=== PATIENT | male | born 1965 | race Caucasian/White ===

== ENCOUNTER 2016-10-07 13:06 | Inpatient (IN) | payer MEDICAID ==
[~2016-10-07] VITALS: Ht 172.7 cm; Wt 91.3 kg
[~2016-10-07 13:06] MED LIST: ASPI-496 PO; CARV6.252 PO; CLIN-60 PO; Carvedilol PO; ENAL20TA PO; HYDR-3240 PO; IBUP-1222 PO; METH4TAB6 PO; SIMV20TA3 PO
[2016-10-07] MEDS ORDERED: ASPIRIN 81 MG TABLET CHEW PO ONE ×2 (13:30→16:30)
[2016-10-07] MEDS ORDERED: SODIUM CHLORIDE FLUSH 10ML SYR IVF ONE (13:30)
[2016-10-07 13:56] LABS: BLOOD UREA NITROGEN 13 mg/dL (7-18)
[2016-10-07 14:00] LABS: IS PT STATUS REG ER OR PRE ER? YES
[2016-10-07] MEDS ORDERED: NITROGLYCERIN SINGLE TAB 0.4 MG SL ONE (16:29)
[2016-10-07] MEDS ORDERED: MORPHINE SULFATE 4 MG/ML, 1ML ONE (16:29)
[2016-10-07] MEDS ORDERED: ONDANSETRON 2MG/ML, 2ML ONE (16:30)
[2016-10-07] MEDS ORDERED: ASPIRIN 81 MG TABLET CHEW ONE (16:30)
[2016-10-07] MEDS ORDERED: ONDANSETRON 2MG/ML, 2ML IVPush ONE (16:30)
[2016-10-07] MEDS ORDERED: NITROGLYCERIN SINGLE TAB 0.4 MG SL PRN (16:30)
[2016-10-07] MEDS: MORPHINE SULFATE 4 MG/ML, 1ML IVPush PRN (16:34)
[2016-10-07] MEDS ORDERED: LABETALOL 5MG/ML 40ML VIAL IVPush PRN (17:30)
[2016-10-07] MEDS ORDERED: DOCUSATE 100 MG CAPSULE PO PRN (17:30)
[2016-10-07] MEDS ORDERED: morphine SULFATE 10 MG/ML, 1ML IVPush PRN (17:30)
[2016-10-07] MEDS ORDERED: NITROGLYCERIN 0.4 MG BOTTLE (25 TABS) SL PRN (17:30)
[2016-10-07] MEDS ORDERED: ACETAMINOPHEN 325 MG TABLET PO PRN (17:30)
[2016-10-07] MEDS ORDERED: ONDANSETRON 2MG/ML, 2ML IVPush PRN (17:30)
[2016-10-07] MEDS ORDERED: POLYETHYLENE GLYCOL 17 GM PACKET PO PRN (17:30)
[2016-10-07] MEDS ORDERED: BISACODYL 10 MG SUPP PR PRN (17:30)
[2016-10-07 18:35] LABS: IS PT STATUS REG ER OR PRE ER? NO
[2016-10-07 20:18] VITALS: BP 142/90
[2016-10-07] MEDS: SODIUM CHLORIDE FLUSH 3ML SYRINGE IVF SCH (20:25)
[2016-10-07] MEDS ORDERED: SIMVASTATIN 20 MG TABLET PO SCH (21:00)
[2016-10-07] MEDS: HYDROcodone/APAP 5/325 TABLET PO PRN (21:41)
[2016-10-07] MEDS: CARVEDILOL 6.25 MG TABLET PO SCH (21:41)
[2016-10-07] MEDS: ENOXAPARIN 30 MG/0.3 ML SQ SCH (21:42)
[2016-10-08 00:13] LABS: IS PT STATUS REG ER OR PRE ER? NO
[2016-10-08 02:00] VITALS: BP 115/75
[2016-10-08] MEDS ORDERED: ASPIRIN 325 MG TABLET EC PO SCH (06:00)
[2016-10-08 07:00] VITALS: BP 130/83
[2016-10-08] MEDS ORDERED: ENALAPRIL 20MG TABLET PO SCH (09:00)
[2016-10-08] MEDS: SODIUM CHLORIDE FLUSH 3ML SYRINGE IVF SCH (09:00)
[2016-10-08] MEDS: CARVEDILOL 6.25 MG TABLET PO SCH (09:11)
[2016-10-08] MEDS: ENOXAPARIN 30 MG/0.3 ML SQ SCH (09:12)
[2016-10-08] MEDS: HYDROcodone/APAP 5/325 TABLET PO PRN (09:12)
[2016-10-08] MEDS: MORPHINE SULFATE 4 MG/ML, 1ML IVPush PRN (11:50)
[2016-10-08 14:16] VITALS: BP 103/64
[2016-10-08] MEDS ORDERED: PNEUMOCOCCAL 23 VACCINE IM-VACC ONE (16:00)
== END 2016-10-08 16:25 | disposition home or self-care (01) | DRG 880 ==
LOC: ED 17:07 → EDIP 17:08 → ED 17:16 → 5SO 18:04 → DCLOUNGE 10-08 16:13
PROVIDERS: ADMIT Internal Medicine; ATTEND Internal Medicine
DX: F41.9 Anxiety disorder, unspecified (principal); E78.5 Hyperlipidemia, unspecified; G89.29 Other chronic pain; M54.9 Dorsalgia, unspecified; I11.9 Hypertensive heart disease without heart failure; R60.0 Localized edema; I25.10 Atherosclerotic heart disease of native coronary artery without angina pectoris; F15.10 Other stimulant abuse, uncomplicated; I25.2 Old myocardial infarction; Z82.49 Family history of ischemic heart disease and other diseases of the circulatory system; Z83.3 Family history of diabetes mellitus; Z87.891 Personal history of nicotine dependence; Z91.19 Patient's noncompliance with other medical treatment and regimen; Z95.5 Presence of coronary angioplasty implant and graft; Z90.49 Acquired absence of other specified parts of digestive tract; Z90.89 Acquired absence of other organs; Z79.82 Long term (current) use of aspirin; Z79.899 Other long term (current) drug therapy; Z23 Encounter for immunization
CPT/HCPCS: 36415; 71020; 80048; 80061; 82040; 83880; 84484; 85025; 85379; 90732; 93005; 93306; 93970; 96374; 96375; J1650; J2405; J2270

== ENCOUNTER 2016-10-27 16:38 | Emergency (ER) | payer SELFPAY ==
[~2016-10-27] VITALS: Ht 172.7 cm; Wt 96.4 kg
[2016-10-27] MEDS ORDERED: SODIUM CHLORIDE 0.9% 1,000ML IVBOLUS ONE (17:00)
[2016-10-27] MEDS ORDERED: SODIUM CHLORIDE FLUSH 10ML SYR IVF ONE (17:00)
[2016-10-27 17:40] LABS: ASPARTATE AMINO TRANSFERASE 19 U/L (15-37); BLOOD UREA NITROGEN 14 mg/dL (7-18)
[2016-10-27] MEDS ORDERED: ONDANSETRON 2MG/ML, 2ML IVPush ONE (20:00)
[2016-10-27] MEDS ORDERED: morphine SULFATE 10 MG/ML, 1ML IVPush ONE (20:00)
[2016-10-27] MEDS ORDERED: MORPHINE SULFATE 4 MG/ML, 1ML ONE (20:07)
[2016-10-27] MEDS ORDERED: ONDANSETRON 2MG/ML, 2ML ONE (20:07)
[2016-10-27] MEDS ORDERED: OMNIPAQUE 350 MG/ML, 100ML BOTTLE ONE (20:58)
[2016-10-27 22:03] VITALS: BP 145/85
== END 2016-10-27 22:05 | disposition home or self-care (01) ==
LOC: ED 21:00
DX: K40.90 Unilateral inguinal hernia, without obstruction or gangrene, not specified as recurrent (principal); E78.5 Hyperlipidemia, unspecified; I10 Essential (primary) hypertension; I25.2 Old myocardial infarction; Z95.5 Presence of coronary angioplasty implant and graft; I25.10 Atherosclerotic heart disease of native coronary artery without angina pectoris; M54.9 Dorsalgia, unspecified; G89.29 Other chronic pain; F15.10 Other stimulant abuse, uncomplicated; Z87.891 Personal history of nicotine dependence
CPT/HCPCS: 36415; 74177; 80053; 81001; 83690; 85025; 96361; 96374; 96375; 99285; J2270; J2405; J7030; Q9967

== ENCOUNTER 2016-11-08 21:09 | Emergency (ER) | payer MEDICAID ==
[2016-11-08 21:12] VITALS: BP 127/82
[2016-11-08] MEDS ORDERED: KETOROLAC 30 MG/1 ML IM ONE (21:30)
[2016-11-08] MEDS ORDERED: KETOROLAC 30 MG/1 ML ONE (21:33)
== END 2016-11-08 22:23 | disposition home or self-care (01) ==
LOC: ED 22:20
DX: J20.8 Acute bronchitis due to other specified organisms (principal); B34.9 Viral infection, unspecified; J00 Acute nasopharyngitis [common cold]; E78.5 Hyperlipidemia, unspecified; I10 Essential (primary) hypertension; I25.2 Old myocardial infarction; I25.10 Atherosclerotic heart disease of native coronary artery without angina pectoris
CPT/HCPCS: 71020; 93005; 96372; 99284; J1885

== ENCOUNTER 2016-11-17 14:34 | Emergency (ER) | payer MEDICAID ==
[2016-11-17] MEDS ORDERED: HYDROcodone/APAP 5/325 TABLET ONE ×2 (16:29→16:34)
[2016-11-17] MEDS ORDERED: HYDROcodone/APAP 5/325 TABLET PO ONE (16:30)
[2016-11-17 18:11] VITALS: BP 116/84
== END 2016-11-17 18:14 | disposition home or self-care (01) ==
LOC: ED 18:08
DX: K40.91 Unilateral inguinal hernia, without obstruction or gangrene, recurrent (principal); I10 Essential (primary) hypertension; E78.5 Hyperlipidemia, unspecified; I25.2 Old myocardial infarction; Z87.891 Personal history of nicotine dependence
CPT/HCPCS: 36415; 74176; 85025; 99285

== ENCOUNTER 2016-11-23 21:34 | Emergency (ER) | payer MEDICAID ==
[~2016-11-23] VITALS: Ht 172.7 cm; Wt 92.9 kg
[2016-11-23] MEDS ORDERED: ONDANSETRON ODT 4 MG PO ONE (22:30)
[2016-11-23] MEDS ORDERED: OXYcodone/APAP 5/325MG TABLET PO ONE (22:30)
[2016-11-23] MEDS ORDERED: ONDANSETRON ODT 4 MG ONE (22:39)
[2016-11-23] MEDS ORDERED: OXYcodone/APAP 5/325MG TABLET ONE (22:39)
[2016-11-23 23:01] LABS: ASPARTATE AMINO TRANSFERASE 15 U/L (15-37); BLOOD UREA NITROGEN 10 mg/dL (7-18)
[2016-11-23 23:31] VITALS: BP 125/83
== END 2016-11-23 23:33 | disposition home or self-care (01) ==
LOC: ED 23:15
DX: K40.91 Unilateral inguinal hernia, without obstruction or gangrene, recurrent (principal); L03.211 Cellulitis of face; E78.5 Hyperlipidemia, unspecified; G56.00 Carpal tunnel syndrome, unspecified upper limb; G89.29 Other chronic pain; M54.9 Dorsalgia, unspecified
CPT/HCPCS: 36415; 80053; 83690; 85025; 99284; Q0162

== ENCOUNTER 2016-11-28 14:29 | Emergency (ER) | payer MEDICAID ==
[~2016-11-28] VITALS: Ht 172.7 cm; Wt 90.1 kg
[2016-11-28 14:36] VITALS: BP 147/95
[2016-11-28] MEDS ORDERED: HYDROcodone/APAP 5/325 TABLET ONE (15:26)
[2016-11-28] MEDS ORDERED: KETOROLAC 30 MG/1 ML ONE (15:26)
[2016-11-28] MEDS ORDERED: KETOROLAC 30 MG/1 ML IM ONE (15:30)
[2016-11-28] MEDS ORDERED: HYDROcodone/APAP 5/325 TABLET PO ONE (15:30)
== END 2016-11-28 17:01 | disposition home or self-care (01) ==
LOC: ED 15:09
DX: S39.012A Strain of muscle, fascia and tendon of lower back, initial encounter (principal); E78.5 Hyperlipidemia, unspecified; M54.9 Dorsalgia, unspecified; G89.29 Other chronic pain; I10 Essential (primary) hypertension; M51.36 Other intervertebral disc degeneration, lumbar region; M51.26 Other intervertebral disc displacement, lumbar region; Z86.73 Personal history of transient ischemic attack (TIA), and cerebral infarction without residual deficits; Z90.49 Acquired absence of other specified parts of digestive tract; Z95.5 Presence of coronary angioplasty implant and graft; W18.2XXA Fall in (into) shower or empty bathtub, initial encounter; Y93.E1 Activity, personal bathing and showering; Y93.89 Activity, other specified; Y99.8 Other external cause status; Y92.89 Other specified places as the place of occurrence of the external cause
CPT/HCPCS: 72110; 72190; 96372; 99284; J1885; J7512

== ENCOUNTER 2017-05-02 16:19 | Emergency (ER) | payer MEDICAID ==
[~2017-05-02] VITALS: Ht 172.7 cm; Wt 85.0 kg
[~2017-05-02 16:19] MED LIST changes: -CLIN-60 PO; +CLIN150C14 PO
[2017-05-02 17:21] VITALS: BP 127/79
[2017-05-02] MEDS ORDERED: MORPHINE SULFATE 4 MG/ML, 1ML IVPush PRN (17:30)
[2017-05-02] MEDS ORDERED: ONDANSETRON 2MG/ML, 2ML IVPush ONE (17:30)
[2017-05-02] MEDS ORDERED: SODIUM CHLORIDE 0.9% 1,000ML IVBOLUS ONE (17:30)
[2017-05-02] MEDS ORDERED: SODIUM CHLORIDE FLUSH 10ML SYR IVF ONE (17:30)
[2017-05-02 17:32] LABS: HEMATOCRIT 40.9 % (39.2-51.8); HEMOGLOBIN 13.6 g/dL (13.7-18.0); WHITE BLOOD COUNT 7.7 x10^3/uL (3.4-10)
[2017-05-02 17:41] LABS: BLOOD UREA NITROGEN 16 mg/dL (7-18)
[2017-05-02] MEDS ORDERED: OMNIPAQUE 350 MG/ML, 100ML BOTTLE ONE (18:25)
== END 2017-05-02 19:59 | disposition home or self-care (01) ==
LOC: ED 19:10
DX: R10.32 Left lower quadrant pain (principal); I10 Essential (primary) hypertension; E78.5 Hyperlipidemia, unspecified; I25.2 Old myocardial infarction; Z86.73 Personal history of transient ischemic attack (TIA), and cerebral infarction without residual deficits
CPT/HCPCS: 36415; 74177; 80048; 81003; 82040; 85025; 96360; 99285; J7030; Q9967

== ENCOUNTER 2017-06-07 18:33 | Emergency (ER) | payer MEDICAID ==
[~2017-06-07] VITALS: Ht 172.7 cm; Wt 96.9 kg
[2017-06-07 18:34] VITALS: BP 161/89
[2017-06-07] MEDS ORDERED: KETOROLAC 30 MG/1 ML ONE (18:56)
[2017-06-07] MEDS ORDERED: KETOROLAC 30 MG/1 ML IM ONE (19:00)
[2017-06-07] MEDS ORDERED: ALBUTEROL/IPRATROPIUM 2.5MG/0.5MG, 3 ML NPPB ONE (19:00)
[2017-06-07 19:22] LABS: RAPID INFLUENZA A Negative (Negative); RAPID INFLUENZA B Negative (Negative)
[2017-06-07] MEDS ORDERED: ALBUTEROL/IPRATROPIUM 2.5MG/0.5MG, 3 ML ONE (20:16)
== END 2017-06-07 20:35 | disposition home or self-care (01) ==
LOC: ED 18:51
DX: J45.31 Mild persistent asthma with (acute) exacerbation (principal); J00 Acute nasopharyngitis [common cold]; I10 Essential (primary) hypertension; E78.5 Hyperlipidemia, unspecified; G89.29 Other chronic pain; M54.9 Dorsalgia, unspecified; F17.210 Nicotine dependence, cigarettes, uncomplicated
CPT/HCPCS: 71046; 87400; 94640; 96372; 99285; J1885; J7620

== ENCOUNTER 2017-07-12 21:15 | Observation (INO) | payer MEDICAID ==
[~2017-07-12] VITALS: Ht 172.7 cm; Wt 102.4 kg
[2017-07-12] MEDS ORDERED: ASPIRIN 81 MG TABLET CHEW ONE (21:56)
[2017-07-12] MEDS ORDERED: KETOROLAC 30 MG/1 ML ONE (21:56)
[2017-07-12] MEDS ORDERED: SODIUM CHLORIDE 0.9% 1,000ML IVBOLUS ONE (22:00)
[2017-07-12] MEDS ORDERED: SODIUM CHLORIDE FLUSH 10ML SYR IVF ONE (22:00)
[2017-07-12] MEDS ORDERED: KETOROLAC 30 MG/1 ML IVPush ONE (22:00)
[2017-07-12] MEDS ORDERED: METOCLOPRAMIDE 5 MG/ML, 2ML IVPush ONE (22:00)
[2017-07-12] MEDS ORDERED: ASPIRIN 81 MG TABLET CHEW PO ONE (22:00)
[2017-07-12 22:22] LABS: MEAN CORPUSCULAR HEMOGLOBIN 30.3 pg (27.5-34.5); MEAN CORPUSCULAR HGB CONC 34.1 g/dL (33.2-36.2); MEAN PLATELET VOLUME 7.4 fL (7.4-10.4); PLATELET COUNT 259 x10^3/uL (130-400); RED BLOOD COUNT 5.04 x10^6/uL (4.38-5.82); RED CELL DISTRIBUTION WIDTH 14.3 % (9.4-14.8)
[2017-07-12 22:30] LABS: ALBUMIN 3.6 g/dL (3.4-5.0); ANION GAP 7 mmol/L (5-15); CALCIUM 8.8 mg/dL (8.5-10.1); CHLORIDE 109 mmol/L (98-107); CREATININE 1.01 mg/dL (0.7-1.3)
[2017-07-12 22:31] LABS: INTERNATIONAL NORMALIZED RATIO 0.95 (0.93-1.1); PARTIAL THROMBOPLASTIN TIME 30 Seconds (25-31); PROTHROMBIN TIME 9.8 Seconds (9.6-11.5)
[2017-07-12 22:32] LABS: D-DIMER < 0.19 ug/mlFEU (0.00-0.52)
[2017-07-12 22:33] LABS: TROPONIN I < 0.015 ng/mL (0.000-0.045)
[2017-07-12 22:48] LABS: BASOPHILS # (AUTO) 0.05 x10^3/uL (0-0.1); BASOPHILS % (AUTO) 1 % (0-1); EOSINOPHILS # (AUTO) 0.24 x10^3/uL (0-0.4); EOSINOPHILS % (AUTO) 3 % (1-7); LYMPHOCYTES # (AUTO) 2.17 x10^3/uL (1-3.4); LYMPHOCYTES % (AUTO) 28 % (22-44); MD SCAN; MONOCYTES # (AUTO) 0.58 x10^3/uL (0.2-0.8); MONOCYTES % (AUTO) 7 % (2-9); NEUTROPHILS # (AUTO) 4.82 x10^3/uL (1.8-6.8); NEUTROPHILS % (AUTO) 61 % (42-75)
[2017-07-12] MEDS ORDERED: MAGNESIUM SULFATE PMX 2GM/50ML 50 ML IV ONE (23:00)
[2017-07-12] MEDS ORDERED: DEXAMETHASONE 4 MG/ML, 1ML IVPush ONE (23:00)
[2017-07-12] MEDS ORDERED: DEXAMETHASONE 4 MG/ML, 5ML ONE (23:06)
[2017-07-13] MEDS ORDERED: ONDANSETRON 2MG/ML, 2ML IVPush PRN (00:30)
[2017-07-13] MEDS ORDERED: GUAIFENESIN/DM 200-20MG, 10ML UDC PO PRN (00:30)
[2017-07-13] MEDS ORDERED: hydrALAzine 20 MG/ML, 1ML IVPush PRN (00:30)
[2017-07-13] MEDS ORDERED: POLYETHYLENE GLYCOL 17 GM PACKET PO PRN (00:30)
[2017-07-13 00:55] VITALS: BP 145/91
[2017-07-13] MEDS: ENOXAPARIN 40 MG/0.4 ML SQ SCH (01:23)
[2017-07-13] MEDS: SODIUM CHLORIDE 0.9% 1,000 ML IV SCH ×3 (01:25→23:00)
[2017-07-13] MEDS: NICOTINE 7 MG/24 HR PATCH.TD24 TD SCH (02:08)
[2017-07-13 04:32] LABS: TROPONIN I < 0.015 ng/mL (0.000-0.045)
[2017-07-13] MEDS ORDERED: MECLIZINE 12.5 MG TABLET PO PRN (07:00)
[2017-07-13 08:06] VITALS: BP 129/76
[2017-07-13] MEDS: ENALAPRIL 20MG TABLET PO SCH (08:35)
[2017-07-13] MEDS: ASPIRIN 81 MG TABLET EC PO SCH (08:35)
[2017-07-13] MEDS: CARVEDILOL 6.25 MG TABLET PO SCH ×2 (08:35→22:55)
[2017-07-13] MEDS: KETOROLAC 30 MG/1 ML IVPush PRN ×3 (08:36→22:55)
[2017-07-13] MEDS: BUTALB/APAP/CAFFEINE 50MG/325MG/40MG PO PRN ×3 (08:58→18:48)
[2017-07-13 10:31] LABS: TROPONIN I < 0.015 ng/mL (0.000-0.045)
[2017-07-13 13:28] VITALS: BP 115/74
[2017-07-13 20:15] VITALS: BP 149/85
[2017-07-13] MEDS: SIMVASTATIN 20 MG TABLET PO SCH (22:55)
[2017-07-14 00:54] VITALS: BP_SYST 135; BP_SYST 35; BP_DIAS 68
[2017-07-14] MEDS: ENOXAPARIN 40 MG/0.4 ML SQ SCH (01:39)
[2017-07-14] MEDS: BUTALB/APAP/CAFFEINE 50MG/325MG/40MG PO PRN ×5 (01:39→21:00)
[2017-07-14] MEDS: NICOTINE 7 MG/24 HR PATCH.TD24 TD SCH (01:40)
[2017-07-14] MEDS: KETOROLAC 30 MG/1 ML IVPush PRN (07:41)
[2017-07-14 08:52] VITALS: BP 126/81
[2017-07-14] MEDS ORDERED: SUMATRIPTAN 6MG/0.5ML SQ ONE (09:00)
[2017-07-14] MEDS: ASPIRIN 81 MG TABLET EC PO SCH (09:10)
[2017-07-14] MEDS: CARVEDILOL 6.25 MG TABLET PO SCH ×2 (09:10→20:57)
[2017-07-14] MEDS: SODIUM CHLORIDE 0.9% 1,000 ML IV SCH ×2 (09:10→21:08)
[2017-07-14] MEDS: ENALAPRIL 20MG TABLET PO SCH (09:10)
[2017-07-14] MEDS: FLUTICASONE NASAL SPRAY 16GM NAS SCH ×2 (10:31→20:57)
[2017-07-14] MEDS ORDERED: KETOROLAC 30 MG/1 ML IVPush SCH (12:00)
[2017-07-14 14:25] VITALS: BP 108/67
[2017-07-14] MEDS ORDERED: SUMATRIPTAN 50 MG TABLET PO PRN (17:00)
[2017-07-14 19:56] VITALS: BP 120/70
[2017-07-14] MEDS: SIMVASTATIN 20 MG TABLET PO SCH (20:57)
[2017-07-14] MEDS: ZOLPIDEM 5MG TABLET PO PRN (20:58)
[2017-07-15] VITALS (8 sets, daily range): BP systolic 99–131; BP diastolic 65–85
[2017-07-15] MEDS ORDERED: KETOROLAC 30 MG/1 ML IVPush PRN
[2017-07-15] MEDS: NICOTINE 7 MG/24 HR PATCH.TD24 TD SCH (00:37)
[2017-07-15] MEDS: ENOXAPARIN 40 MG/0.4 ML SQ SCH (00:37)
[2017-07-15] MEDS: SODIUM CHLORIDE 0.9% 1,000 ML IV SCH (05:33)
[2017-07-15] MEDS: BUTALB/APAP/CAFFEINE 50MG/325MG/40MG PO PRN ×4 (05:34→22:12)
[2017-07-15] MEDS: FLUTICASONE NASAL SPRAY 16GM NAS SCH ×2 (08:20→19:58)
[2017-07-15] MEDS: ASPIRIN 81 MG TABLET EC PO SCH (08:21)
[2017-07-15] MEDS: ENALAPRIL 20MG TABLET PO SCH (08:21)
[2017-07-15] MEDS: CARVEDILOL 6.25 MG TABLET PO SCH ×2 (08:21→19:57)
[2017-07-15] MEDS: ACETAMINOPHEN 325 MG TABLET PO PRN (08:24)
[2017-07-15 16:19] LABS: HCT (SEDRATE) 38.7 % (39.2-51.8)
[2017-07-15] MEDS: SIMVASTATIN 20 MG TABLET PO SCH (19:57)
[2017-07-15] MEDS ORDERED: INDOMETHACIN 25 MG CAPSULE PO SCH (21:00)
[2017-07-15] MEDS: ZOLPIDEM 5MG TABLET PO PRN (22:12)
[2017-07-15] MEDS ORDERED: OMNIPAQUE 350 MG/ML, 100ML BOTTLE ONE (22:43)
[2017-07-16 01:25] VITALS: BP 100/62
[2017-07-16] MEDS: ACETAMINOPHEN 325 MG TABLET PO PRN ×2 (01:59→13:45)
[2017-07-16] MEDS: NICOTINE 7 MG/24 HR PATCH.TD24 TD SCH (02:00)
[2017-07-16] MEDS: BUTALB/APAP/CAFFEINE 50MG/325MG/40MG PO PRN (06:09)
[2017-07-16 07:45] VITALS: BP 110/68
[2017-07-16 07:46] VITALS: BP 115/69
[2017-07-16 07:47] VITALS: BP 108/64
[2017-07-16] MEDS: ENALAPRIL 20MG TABLET PO SCH (08:28)
[2017-07-16] MEDS: FLUTICASONE NASAL SPRAY 16GM NAS SCH (08:28)
[2017-07-16] MEDS: CARVEDILOL 6.25 MG TABLET PO SCH (08:28)
[2017-07-16] MEDS: ASPIRIN 81 MG TABLET EC PO SCH (08:28)
[2017-07-16] MEDS ORDERED: INDOMETHACIN 25 MG CAPSULE PO SCH (09:00)
[2017-07-16] MEDS ORDERED: ONDANSETRON 4 MG TABLET ONE (09:26)
[2017-07-16] MEDS ORDERED: INDO25CA PO (10:06)
[2017-07-16 12:51] VITALS: BP 100/55
== END 2017-07-16 15:45 | disposition home or self-care (01) ==
LOC: ED 21:59 → EDIP 23:57 → INTOOBSV 07-13 00:15 → EDIP 07-13 00:15 → UNDOADMOB 07-13 00:15 → 5SO 07-13 00:54 → EDIP 07-13 00:54 → 4EST 07-15 19:28 → 5SO 07-15 19:28
PROVIDERS: ADMIT Hospitalist; ATTEND Hospitalist
DX: G44.009 Cluster headache syndrome, unspecified, not intractable (principal); E78.5 Hyperlipidemia, unspecified; R51 Headache; I11.9 Hypertensive heart disease without heart failure; I25.10 Atherosclerotic heart disease of native coronary artery without angina pectoris; I25.2 Old myocardial infarction; Z79.82 Long term (current) use of aspirin; J45.909 Unspecified asthma, uncomplicated; Z86.73 Personal history of transient ischemic attack (TIA), and cerebral infarction without residual deficits; F17.210 Nicotine dependence, cigarettes, uncomplicated; E66.9 Obesity, unspecified; Z95.5 Presence of coronary angioplasty implant and graft
CPT/HCPCS: 36415; 70450; 70496; 70498; 70546; 70551; 71045; 80048; 82040; 84443; 84484; 85025; 85379; 85610; 85651; 85730; 86141; 93005; 96361; 96365; 96366; 96372; 96375; 96376; 97161; 99285; G0378; J1100; J1650; J1885; J2405; J2765; J3030; J3475; J7030; Q9967

== ENCOUNTER 2017-09-21 19:07 | Emergency (ER) | payer MEDICAID ==
[~2017-09-21] VITALS: Ht 172.7 cm; Wt 107.5 kg
[~2017-09-21 19:07] MED LIST changes: +INDO25CA PO
[2017-09-21] MEDS ORDERED: METHOCARBAMOL 750 MG TABLET PO ONE (20:00)
[2017-09-21] MEDS ORDERED: KETOROLAC 30 MG/1 ML IM ONE (20:00)
[2017-09-21 20:05] LABS: BASOPHILS # (AUTO) 0.03 x10^3/uL (0-0.1); BASOPHILS % (AUTO) 0 % (0-1); EOSINOPHILS # (AUTO) 0.19 x10^3/uL (0-0.4); EOSINOPHILS % (AUTO) 2 % (1-7); LYMPHOCYTES # (AUTO) 1.61 x10^3/uL (1-3.4); LYMPHOCYTES % (AUTO) 16 % (22-44); MD NO; MEAN CORPUSCULAR HEMOGLOBIN 31.4 pg (27.5-34.5); MEAN CORPUSCULAR HGB CONC 34.1 g/dL (33.2-36.2); MEAN CORPUSCULAR VOLUME 92.1 fL (81-97); MEAN PLATELET VOLUME 7.6 fL (7.4-10.4); MONOCYTES # (AUTO) 0.71 x10^3/uL (0.2-0.8); MONOCYTES % (AUTO) 7 % (2-9); NEUTROPHILS # (AUTO) 7.43 x10^3/uL (1.8-6.8); NEUTROPHILS % (AUTO) 75 % (42-75); PLATELET COUNT 292 x10^3/uL (130-400); RED BLOOD COUNT 4.92 x10^6/uL (4.38-5.82); RED CELL DISTRIBUTION WIDTH 14.7 % (9.4-14.8)
[2017-09-21 20:16] LABS: ALBUMIN 3.5 g/dL (3.4-5.0); ANION GAP 7 mmol/L (5-15); CALCIUM 8.8 mg/dL (8.5-10.1); CHLORIDE 111 mmol/L (98-107); CREATININE 1.25 mg/dL (0.7-1.3)
[2017-09-21 20:20] LABS: TROPONIN I < 0.015 ng/mL (0.000-0.045)
[2017-09-21] MEDS ORDERED: METHOCARBAMOL 750 MG TABLET ONE (20:30)
[2017-09-21] MEDS ORDERED: KETOROLAC 30 MG/1 ML ONE (20:30)
[2017-09-21 22:24] VITALS: BP 112/86
== END 2017-09-21 22:26 | disposition home or self-care (01) ==
LOC: ED 22:16
DX: S29.012A Strain of muscle and tendon of back wall of thorax, initial encounter (principal); M54.2 Cervicalgia; R07.89 Other chest pain; I10 Essential (primary) hypertension; E78.5 Hyperlipidemia, unspecified; I25.2 Old myocardial infarction; J45.909 Unspecified asthma, uncomplicated; Z79.82 Long term (current) use of aspirin; Z87.891 Personal history of nicotine dependence; Z90.49 Acquired absence of other specified parts of digestive tract; X58.XXXA Exposure to other specified factors, initial encounter; Y93.89 Activity, other specified; Y92.89 Other specified places as the place of occurrence of the external cause; Y99.8 Other external cause status
CPT/HCPCS: 36415; 71046; 72050; 80048; 82040; 84484; 85025; 85379; 93005; 96372; 99285; J1885

== ENCOUNTER 2017-11-09 13:46 | Emergency (ER) | payer MEDICAID ==
[~2017-11-09] VITALS: Ht 172.7 cm; Wt 96.0 kg
[2017-11-09] MEDS ORDERED: ASPIRIN 81 MG TABLET CHEW PO ONE (14:30)
[2017-11-09] MEDS ORDERED: SODIUM CHLORIDE FLUSH 10ML SYR IVF ONE (14:30)
[2017-11-09 14:41] LABS: BASOPHILS # (AUTO) 0.04 x10^3/uL (0-0.1); BASOPHILS % (AUTO) 0 % (0-1); EOSINOPHILS # (AUTO) 0.11 x10^3/uL (0-0.4); EOSINOPHILS % (AUTO) 1 % (1-7); LYMPHOCYTES % (AUTO) 15 % (22-44); MD NO; MEAN CORPUSCULAR HGB CONC 33.3 g/dL (33.2-36.2); MEAN CORPUSCULAR VOLUME 93.1 fL (81-97); MONOCYTES # (AUTO) 0.58 x10^3/uL (0.2-0.8); MONOCYTES % (AUTO) 7 % (2-9); NEUTROPHILS # (AUTO) 6.72 x10^3/uL (1.8-6.8); NEUTROPHILS % (AUTO) 77 % (42-75); PLATELET COUNT 260 x10^3/uL (130-400); RED CELL DISTRIBUTION WIDTH 13.9 % (9.4-14.8)
[2017-11-09 14:45] LABS: INTERNATIONAL NORMALIZED RATIO 0.97 (0.93-1.1)
[2017-11-09] MEDS ORDERED: ASPIRIN 81 MG TABLET CHEW ONE (14:46)
[2017-11-09] MEDS ORDERED: METO25TA35 PO (14:51)
[2017-11-09] MEDS ORDERED: ATOR20TA PO (14:51)
[2017-11-09 14:52] LABS: ALANINE AMINOTRANSFERASE 34 U/L (12-78); ALBUMIN 3.3 g/dL (3.4-5.0); ANION GAP 6 mmol/L (5-15); CALCIUM 8.5 mg/dL (8.5-10.1); CHLORIDE 112 mmol/L (98-107); CREATININE 0.75 mg/dL (0.7-1.3)
[2017-11-09 14:56] LABS: ALKALINE PHOSPHATASE 82 U/L (45-117); BILIRUBIN,TOTAL 0.4 mg/dL (0.2-1.0); TOTAL PROTEIN 6.7 g/dL (6.4-8.2); TROPONIN I 0.036 ng/mL (0.000-0.045)
[2017-11-09] MEDS ORDERED: KETOROLAC 30 MG/1 ML IVPush ONE (15:00)
[2017-11-09] MEDS ORDERED: KETOROLAC 30 MG/1 ML ONE ×2 (15:08→15:35)
[2017-11-09 16:58] VITALS: BP 125/76
== END 2017-11-09 17:01 | disposition home or self-care (01) ==
LOC: ED 15:15
DX: S29.012A Strain of muscle and tendon of back wall of thorax, initial encounter (principal); R07.89 Other chest pain; I11.9 Hypertensive heart disease without heart failure; G89.29 Other chronic pain; I25.10 Atherosclerotic heart disease of native coronary artery without angina pectoris; J45.909 Unspecified asthma, uncomplicated; E78.5 Hyperlipidemia, unspecified; I25.2 Old myocardial infarction; X58.XXXA Exposure to other specified factors, initial encounter; Y93.89 Activity, other specified; Y92.89 Other specified places as the place of occurrence of the external cause; Y99.8 Other external cause status; Z86.73 Personal history of transient ischemic attack (TIA), and cerebral infarction without residual deficits; Z87.891 Personal history of nicotine dependence
CPT/HCPCS: 36415; 71045; 80053; 83880; 84484; 85025; 85610; 93005; 96374; 99285; J1885

== ENCOUNTER 2017-11-24 09:15 | Emergency (ER) | payer MEDICAID ==
[~2017-11-24] VITALS: Ht 172.7 cm; Wt 94.0 kg
[~2017-11-24 09:15] MED LIST changes: +ATOR20TA PO; +METO25TA35 PO
[2017-11-24 09:54] LABS: BASOPHILS # (AUTO) 0.07 x10^3/uL (0-0.1); BASOPHILS % (AUTO) 1 % (0-1); EOSINOPHILS # (AUTO) 0.17 x10^3/uL (0-0.4); EOSINOPHILS % (AUTO) 2 % (1-7); LYMPHOCYTES # (AUTO) 1.02 x10^3/uL (1-3.4); LYMPHOCYTES % (AUTO) 11 % (22-44); MD NO; MEAN CORPUSCULAR HEMOGLOBIN 31.1 pg (27.5-34.5); MEAN CORPUSCULAR HGB CONC 33.6 g/dL (33.2-36.2); MEAN CORPUSCULAR VOLUME 92.4 fL (81-97); MEAN PLATELET VOLUME 7.9 fL (7.4-10.4); MONOCYTES # (AUTO) 0.47 x10^3/uL (0.2-0.8); MONOCYTES % (AUTO) 5 % (2-9); NEUTROPHILS # (AUTO) 7.87 x10^3/uL (1.8-6.8); NEUTROPHILS % (AUTO) 82 % (42-75); PLATELET COUNT 266 x10^3/uL (130-400); RED BLOOD COUNT 5.01 x10^6/uL (4.38-5.82); RED CELL DISTRIBUTION WIDTH 13.7 % (9.4-14.8)
[2017-11-24 10:05] LABS: ALBUMIN 3.4 g/dL (3.4-5.0); ANION GAP 8 mmol/L (5-15); CALCIUM 8.7 mg/dL (8.5-10.1); CHLORIDE 108 mmol/L (98-107)
[2017-11-24 10:08] LABS: ALANINE AMINOTRANSFERASE 25 U/L (12-78); ALKALINE PHOSPHATASE 94 U/L (45-117); BILIRUBIN,TOTAL 0.6 mg/dL (0.2-1.0); CREATININE 0.72 mg/dL (0.7-1.3); TOTAL PROTEIN 7.2 g/dL (6.4-8.2)
[2017-11-24] MEDS ORDERED: SODIUM CHLORIDE 0.9% 1,000ML IVBOLUS ONE (10:30)
[2017-11-24] MEDS ORDERED: KETOROLAC 30 MG/1 ML IVPush ONE (10:30)
[2017-11-24] MEDS ORDERED: METOCLOPRAMIDE 5 MG/ML, 2ML IVPush ONE (10:30)
[2017-11-24] MEDS ORDERED: DIPHENHYDRAMINE 50 MG/ML, 1ML IVPush ONE (10:30)
[2017-11-24] MEDS ORDERED: DIPHENHYDRAMINE 50 MG/ML, 1ML ONE (10:34)
[2017-11-24] MEDS ORDERED: KETOROLAC 30 MG/1 ML ONE (10:34)
[2017-11-24] MEDS ORDERED: METOCLOPRAMIDE 5 MG/ML, 2ML ONE (10:34)
[2017-11-24] MEDS ORDERED: DEXAMETHASONE 4 MG/ML, 1ML IVPush ONE ×2 (12:30→13:00)
[2017-11-24] MEDS ORDERED: DEXAMETHASONE 4 MG/ML, 1ML ONE ×2 (12:46→12:47)
[2017-11-24 13:29] VITALS: BP 145/89
== END 2017-11-24 13:49 | disposition home or self-care (01) ==
LOC: ED 11:18
DX: G43.909 Migraine, unspecified, not intractable, without status migrainosus (principal); I10 Essential (primary) hypertension; J45.909 Unspecified asthma, uncomplicated; E78.5 Hyperlipidemia, unspecified; I25.10 Atherosclerotic heart disease of native coronary artery without angina pectoris; Z90.89 Acquired absence of other organs; Z86.73 Personal history of transient ischemic attack (TIA), and cerebral infarction without residual deficits
CPT/HCPCS: 36415; 70450; 80053; 85025; 96361; 96374; 96375; 99285; J1100; J1200; J1885; J2765; J7030

== ENCOUNTER 2017-12-20 02:19 | Emergency (ER) | payer MEDICAID ==
[~2017-12-20] VITALS: Ht 172.7 cm; Wt 95.0 kg
[~2017-12-20 02:19] MED LIST changes: +ASPI-650 PO; +CYCL-259 PO; -INDO25CA PO; +INDO25CA5 PO; +LISI-167 PO; +NICO-486 TP
[2017-12-20 02:21] VITALS: BP 135/84
[2017-12-20] MEDS ORDERED: IBUPROFEN 200 MG TABLET PO ONE (03:30)
== END 2017-12-20 05:31 | disposition home or self-care (01) ==
LOC: ED 03:20
DX: G89.11 Acute pain due to trauma (principal); M25.512 Pain in left shoulder; M25.552 Pain in left hip; M25.562 Pain in left knee; E78.5 Hyperlipidemia, unspecified; I25.2 Old myocardial infarction; I10 Essential (primary) hypertension; J45.909 Unspecified asthma, uncomplicated; F17.200 Nicotine dependence, unspecified, uncomplicated; Z86.73 Personal history of transient ischemic attack (TIA), and cerebral infarction without residual deficits; Z72.9 Problem related to lifestyle, unspecified; W19.XXXA Unspecified fall, initial encounter; Y93.89 Activity, other specified; Y99.8 Other external cause status; Y92.009 Unspecified place in unspecified non-institutional (private) residence as the place of occurrence of the external cause
CPT/HCPCS: 99284

== ENCOUNTER 2017-12-25 07:40 | Emergency (ER) | payer MEDICAID ==
[~2017-12-25] VITALS: Ht 172.7 cm; Wt 94.3 kg
[2017-12-25] MEDS ORDERED: KETOROLAC 30 MG/1 ML IM ONE (08:30)
[2017-12-25] MEDS ORDERED: KETOROLAC 30 MG/1 ML ONE (08:43)
[2017-12-25 09:01] VITALS: BP 138/87
== END 2017-12-25 09:42 | disposition home or self-care (01) ==
LOC: ED 07:57
DX: M25.572 Pain in left ankle and joints of left foot (principal); M25.571 Pain in right ankle and joints of right foot; M25.562 Pain in left knee; M25.561 Pain in right knee; I10 Essential (primary) hypertension; M54.9 Dorsalgia, unspecified; G89.29 Other chronic pain; I25.2 Old myocardial infarction; E78.5 Hyperlipidemia, unspecified; G43.909 Migraine, unspecified, not intractable, without status migrainosus; J45.909 Unspecified asthma, uncomplicated; Z86.73 Personal history of transient ischemic attack (TIA), and cerebral infarction without residual deficits
CPT/HCPCS: 73564; 96372; 99284; J1885

== ENCOUNTER 2018-02-01 09:44 | Emergency (ER) | payer MEDICAID ==
[~2018-02-01] VITALS: Ht 172.7 cm; Wt 92.7 kg
[2018-02-01] MEDS ORDERED: ACETAMINOPHEN 325 MG TABLET ONE (10:16)
[2018-02-01] MEDS ORDERED: ACETAMINOPHEN 325 MG TABLET PO ONE (10:30)
[2018-02-01 10:52] LABS: BASOPHILS # (AUTO) 0.05 x10^3/uL (0-0.1); BASOPHILS % (AUTO) 1 % (0-1); EOSINOPHILS # (AUTO) 0.24 x10^3/uL (0-0.4); EOSINOPHILS % (AUTO) 2 % (1-7); LYMPHOCYTES # (AUTO) 1.29 x10^3/uL (1-3.4); LYMPHOCYTES % (AUTO) 11 % (22-44); MD NO; MEAN CORPUSCULAR HEMOGLOBIN 31.1 pg (27.5-34.5); MEAN CORPUSCULAR HGB CONC 33.9 g/dL (33.2-36.2); MEAN CORPUSCULAR VOLUME 91.8 fL (81-97); MEAN PLATELET VOLUME 8.1 fL (7.4-10.4); MONOCYTES # (AUTO) 0.59 x10^3/uL (0.2-0.8); MONOCYTES % (AUTO) 5 % (2-9); NEUTROPHILS # (AUTO) 9.24 x10^3/uL (1.8-6.8); NEUTROPHILS % (AUTO) 81 % (42-75); PLATELET COUNT 253 x10^3/uL (130-400); RED BLOOD COUNT 4.76 x10^6/uL (4.38-5.82); RED CELL DISTRIBUTION WIDTH 14.6 % (9.4-14.8)
[2018-02-01 11:02] LABS: ALBUMIN 3.3 g/dL (3.4-5.0); ANION GAP 7 mmol/L (5-15); CALCIUM 9.1 mg/dL (8.5-10.1); CHLORIDE 109 mmol/L (98-107)
[2018-02-01 11:05] LABS: ALANINE AMINOTRANSFERASE 20 U/L (12-78); ALKALINE PHOSPHATASE 101 U/L (45-117); BILIRUBIN,TOTAL 0.2 mg/dL (0.2-1.0); CREATININE 0.65 mg/dL (0.7-1.3); TOTAL PROTEIN 6.9 g/dL (6.4-8.2)
[2018-02-01 11:24] LABS: MICROSCOPIC AUTO
[2018-02-01 11:25] LABS: CULTURE INDICATED? NO
[2018-02-01 11:42] VITALS: BP 116/75
== END 2018-02-01 11:43 | disposition home or self-care (01) ==
LOC: ED 10:21
DX: N30.00 Acute cystitis without hematuria (principal); I25.10 Atherosclerotic heart disease of native coronary artery without angina pectoris; I10 Essential (primary) hypertension; I25.2 Old myocardial infarction; Z86.73 Personal history of transient ischemic attack (TIA), and cerebral infarction without residual deficits; J45.909 Unspecified asthma, uncomplicated; Z90.89 Acquired absence of other organs; F17.200 Nicotine dependence, unspecified, uncomplicated; E78.5 Hyperlipidemia, unspecified
CPT/HCPCS: 36415; 80053; 81001; 85025; 99284

== ENCOUNTER 2018-03-02 19:25 | Emergency (ER) | payer MEDICAID ==
[~2018-03-02] VITALS: Ht 172.7 cm; Wt 97.7 kg
[2018-03-02] MEDS ORDERED: ASPIRIN 81 MG TABLET CHEW PO ONE (19:30)
[2018-03-02] MEDS ORDERED: ASPIRIN 81 MG TABLET CHEW ONE (20:07)
[2018-03-02 20:21] LABS: BASOPHILS # (AUTO) 0.16 x10^3/uL (0-0.1); BASOPHILS % (AUTO) 2 % (0-1); EOSINOPHILS # (AUTO) 0.29 x10^3/uL (0-0.4); EOSINOPHILS % (AUTO) 3 % (1-7); LYMPHOCYTES % (AUTO) 25 % (22-44); MD NO; MEAN CORPUSCULAR HEMOGLOBIN 30.3 pg (27.5-34.5); MEAN CORPUSCULAR HGB CONC 33.5 g/dL (33.2-36.2); MEAN CORPUSCULAR VOLUME 90.3 fL (81-97); MEAN PLATELET VOLUME 7.6 fL (7.4-10.4); MONOCYTES % (AUTO) 6 % (2-9); NEUTROPHILS # (AUTO) 5.96 x10^3/uL (1.8-6.8); NEUTROPHILS % (AUTO) 64 % (42-75); PLATELET COUNT 291 x10^3/uL (130-400); RED CELL DISTRIBUTION WIDTH 14.3 % (9.4-14.8)
[2018-03-02 20:32] LABS: ALBUMIN 3.3 g/dL (3.4-5.0); ANION GAP 8 mmol/L (5-15); CALCIUM 7.9 mg/dL (8.5-10.1); CHLORIDE 110 mmol/L (98-107)
[2018-03-02 20:37] LABS: ALANINE AMINOTRANSFERASE 39 U/L (12-78); ALKALINE PHOSPHATASE 93 U/L (45-117); BILIRUBIN,TOTAL 0.3 mg/dL (0.2-1.0); CREATININE 0.78 mg/dL (0.7-1.3); TROPONIN I < 0.015 ng/mL (0.000-0.045)
[2018-03-02 21:03] VITALS: BP 113/66
== END 2018-03-02 21:25 | disposition home or self-care (01) ==
LOC: ED 21:05
DX: R07.89 Other chest pain (principal); R06.02 Shortness of breath; R20.2 Paresthesia of skin; I25.2 Old myocardial infarction; I11.9 Hypertensive heart disease without heart failure; Z87.891 Personal history of nicotine dependence
CPT/HCPCS: 36415; 71045; 80053; 84484; 85025; 93005; 99285

== ENCOUNTER 2018-05-04 10:38 | Emergency (ER) | payer MEDICAID ==
[~2018-05-04] VITALS: Ht 172.7 cm; Wt 104.5 kg
[2018-05-04 11:00] VITALS: BP 136/79
[2018-05-04] MEDS ORDERED: HYDR25TA11 PO (11:29)
[2018-05-04 11:54] LABS: ALBUMIN 3.4 g/dL (3.4-5.0); ANION GAP 5 mmol/L (5-15); CALCIUM 8.6 mg/dL (8.5-10.1); CHLORIDE 109 mmol/L (98-107)
[2018-05-04 11:57] LABS: ALANINE AMINOTRANSFERASE 44 U/L (12-78); ALKALINE PHOSPHATASE 89 U/L (45-117); BILIRUBIN,TOTAL 0.5 mg/dL (0.2-1.0); CREATININE 0.77 mg/dL (0.7-1.3); TOTAL PROTEIN 7.1 g/dL (6.4-8.2)
[2018-05-04] MEDS ORDERED: SODIUM CHLORIDE FLUSH 10ML SYR IVF ONE (12:00)
[2018-05-04] MEDS ORDERED: OMNIPAQUE 350 MG/ML, 100ML BOTTLE ONE (12:57)
--- NOTE | 2018-05-04 13:15 | NUR ---
all results returned, chart placed for recheck.
--- NOTE | 2018-05-04 13:54 | NUR ---
PT EDUCATED ON DISCHARGE INSTRUCTIONS, VERBALLY ACKNOWLEDGED UNDERSTANDING. PT AMBULATES WITH STEADY GAIT. PT SITUATION IMPROVED AT THIS TIME.
[2018-05-18] MEDS ORDERED: ASPI-496 PO (16:48)
== END 2018-05-04 13:55 | disposition home or self-care (01) ==
LOC: ED 11:43
DX: L03.211 Cellulitis of face (principal); K04.7 Periapical abscess without sinus; I11.9 Hypertensive heart disease without heart failure; I25.10 Atherosclerotic heart disease of native coronary artery without angina pectoris; J45.909 Unspecified asthma, uncomplicated; E78.5 Hyperlipidemia, unspecified; I25.2 Old myocardial infarction; Z90.49 Acquired absence of other specified parts of digestive tract; Z86.73 Personal history of transient ischemic attack (TIA), and cerebral infarction without residual deficits; Z90.89 Acquired absence of other organs; Z87.891 Personal history of nicotine dependence; Z98.61 Coronary angioplasty status
CPT/HCPCS: 36415; 70487; 80053; 99284; Q9967

== ENCOUNTER 2018-06-02 18:12 | Inpatient (IN) | payer MEDICAID ==
[~2018-06-02] VITALS: Ht 172.7 cm; Wt 113.0 kg
[~2018-06-02 18:12] MED LIST changes: +FLUO20CA19 PO; +HYDR25TA11 PO
--- NOTE | 2018-06-02 18:29 | NUR ---
THIS PT ARRIVES TO ED VIA EMS FROM HOME TODAY AFTER HAIVNG SOME CHEST PAIN AND SEVERE PAIN. PT REPORTS IT STARTS AT EPIGASTRIC AREA AND THEN RADIATES TO LEFT SIDE WITH SCAPULAR LEFT SIDE PAIN. PT REPORTS THAT HE NORMALLY DOES NOT HAVE PAIN LIKE THIS BUT HAS HAD PAIN LIKE THIS WITH PREVIOUS [place]. PT CONNECTED TO MONITORS AND PIV BUS WASHER [facility]. PT HAD EKG AT THIS TIME. AWAITING FURTHER ORDERS. EKG COMPELTED ON ARRIVAL. REPORT TO MARLIN LIVINGSTON.
[2018-06-02] MEDS ORDERED: SODIUM CHLORIDE FLUSH 10ML SYR IVF ONE (19:00)
[2018-06-02 19:14] LABS: BASOPHILS # (AUTO) 0.01 x10^3/uL (0-0.1); BASOPHILS % (AUTO) 0 % (0-1); EOSINOPHILS % (AUTO) 0 % (1-7); LYMPHOCYTES # (AUTO) 0.47 x10^3/uL (1-3.4); LYMPHOCYTES % (AUTO) 5 % (22-44); MD NO; MEAN CORPUSCULAR HEMOGLOBIN 31.8 pg (27.5-34.5); MEAN CORPUSCULAR HGB CONC 34.2 g/dL (33.2-36.2); MEAN CORPUSCULAR VOLUME 92.9 fL (81-97); MEAN PLATELET VOLUME 7.6 fL (7.4-10.4); MONOCYTES % (AUTO) 1 % (2-9); NEUTROPHILS # (AUTO) 8.91 x10^3/uL (1.8-6.8); NEUTROPHILS % (AUTO) 94 % (42-75); PLATELET COUNT 271 x10^3/uL (130-400); RED BLOOD COUNT 4.52 x10^6/uL (4.38-5.82)
[2018-06-02 19:19] LABS: ALANINE AMINOTRANSFERASE 42 U/L (12-78); ALBUMIN 3.6 g/dL (3.4-5.0); ANION GAP 7 mmol/L (5-15); CALCIUM 8.7 mg/dL (8.5-10.1); CHLORIDE 106 mmol/L (98-107); CREATININE 0.97 mg/dL (0.7-1.3)
[2018-06-02 19:24] LABS: ALKALINE PHOSPHATASE 87 U/L (45-117); BILIRUBIN,TOTAL 0.3 mg/dL (0.2-1.0); TOTAL PROTEIN 7.4 g/dL (6.4-8.2); TROPONIN I < 0.015 ng/mL (0.000-0.045)
--- NOTE | 2018-06-02 19:51 | NUR ---
REPORT FROM NOEL LIVINGSTON. PT UP TO BR WITHOUT DIFFICULTY. PT NOW TO CT.
[2018-06-02] MEDS ORDERED: OMNIPAQUE 350 MG/ML, 100ML BOTTLE ONE (20:12)
--- NOTE | 2018-06-02 20:29 | NUR ---
CTA RESULTS BACK, PT FOR RECHECK.
--- NOTE | 2018-06-02 20:36 | NUR ---
DR SEPULVEDA IN TO SEE PT. VSS/UPDATED IN COMPUTER. POC DISCUSSED WITH PT, PT TO BE ADMITTED, MED REC COMPLETED.
[2018-06-02] MEDS ORDERED: LISI-167 PO (20:38)
[2018-06-02] MEDS ORDERED: MORPHINE SULFATE 4 MG/ML, 1ML ONE (21:03)
[2018-06-02] MEDS ORDERED: HYDR25TA11 PO (21:07)
[2018-06-02] MEDS ORDERED: IBUP-1222 PO (21:07)
[2018-06-02] MEDS ORDERED: TRAZ50TA66 PO (21:07)
[2018-06-02] MEDS ORDERED: ASPI-515 PO (21:07)
[2018-06-02] MEDS ORDERED: TRAM50TA2 PO (21:07)
[2018-06-02] MEDS ORDERED: ATOR20TA86 MT (21:07)
--- NOTE | 2018-06-02 21:14 | NUR ---
[facility] IN TO SEE PT. PT GIVEN MORPHINE 4MG IVP PER [facility] ORDER. AWAITING HEPARIN GTT/ORDERS AND ADMIT BED.
[2018-06-02] MEDS ORDERED: NICOTINE 14MG/24 HR PATCH.TD24 TD SCH (22:00)
[2018-06-02] MEDS ORDERED: ONDANSETRON ODT 4 MG PO PRN (22:00)
[2018-06-02] MEDS ORDERED: TRAZODONE 50MG TABLET PO PRN (22:00)
[2018-06-02] MEDS ORDERED: POLYETHYLENE GLYCOL 17 GM PACKET PO PRN (22:00)
[2018-06-02] MEDS ORDERED: BISACODYL 10 MG SUPP PR PRN (22:00)
--- NOTE | 2018-06-02 22:14 | NUR ---
REPORT TO DEB LIVINGSTON.
--- NOTE | 2018-06-02 22:26 | NUR ---
SBAR TELEPHONE HAND-OFF REPORT TO MIKI RIOS. PATIENT TO U/S AT THIS TIME.
[2018-06-02] MEDS ORDERED: HEPARIN 5,000 UNITS/ML, 1ML IV ONE (22:30)
[2018-06-02] MEDS ORDERED: MORPHINE SULFATE 4 MG/ML, 1ML IVPush ONE (22:30)
[2018-06-02 22:53] LABS: HEMOGLOBIN A1C 5.6 % (4.2-6.3)
[2018-06-02 22:55] VITALS: BP 142/78
[2018-06-02] MEDS: FLUOXETINE HCL 20 MG CAPSULE PO SCH (23:35)
[2018-06-02] MEDS: OXYcodone/APAP 5/325MG TABLET PO PRN (23:35)
[2018-06-02] MEDS: SODIUM CHLORIDE FLUSH 10ML SYR IVF SCH (23:38)
[2018-06-02] MEDS: HEPARIN 25,000 UNITS/500ML PMX 500 ML IV PRN (23:41)
[2018-06-03] MEDS: ACETAMINOPHEN 325 MG TABLET PO PRN ×3 (02:03→18:48)
[2018-06-03 02:07] VITALS: BP 131/75
[2018-06-03] MEDS: OXYcodone/APAP 5/325MG TABLET PO PRN ×5 (04:07→20:30)
[2018-06-03 06:28] LABS: BASOPHILS # (AUTO) 0.01 x10^3/uL (0-0.1); BASOPHILS % (AUTO) 0 % (0-1); EOSINOPHILS % (AUTO) 0 % (1-7); LYMPHOCYTES % (AUTO) 10 % (22-44); MD NO; MEAN CORPUSCULAR HEMOGLOBIN 31.6 pg (27.5-34.5); MEAN CORPUSCULAR HGB CONC 33.8 g/dL (33.2-36.2); MEAN CORPUSCULAR VOLUME 93.4 fL (81-97); MEAN PLATELET VOLUME 7.8 fL (7.4-10.4); MONOCYTES # (AUTO) 0.94 x10^3/uL (0.2-0.8); MONOCYTES % (AUTO) 7 % (2-9); NEUTROPHILS # (AUTO) 11.31 x10^3/uL (1.8-6.8); NEUTROPHILS % (AUTO) 83 % (42-75); PLATELET COUNT 263 x10^3/uL (130-400); RED BLOOD COUNT 4.25 x10^6/uL (4.38-5.82); RED CELL DISTRIBUTION WIDTH 14.4 % (9.4-14.8)
[2018-06-03 06:34] LABS: CHLORIDE 106 mmol/L (98-107)
[2018-06-03 06:43] LABS: ALANINE AMINOTRANSFERASE 36 U/L (12-78); ALBUMIN 3.3 g/dL (3.4-5.0); ALKALINE PHOSPHATASE 86 U/L (45-117); ANION GAP 7 mmol/L (5-15); BILIRUBIN,TOTAL 0.4 mg/dL (0.2-1.0); CALCIUM 8.6 mg/dL (8.5-10.1); CREATININE 1.14 mg/dL (0.7-1.3); TOTAL PROTEIN 6.9 g/dL (6.4-8.2)
[2018-06-03 08:00] VITALS: BP 140/80
[2018-06-03] MEDS: LISINOPRIL 10 MG TABLET PO SCH (08:16)
[2018-06-03] MEDS: FLUOXETINE HCL 20 MG CAPSULE PO SCH ×2 (08:16→20:29)
[2018-06-03] MEDS: HEPARIN 5,000 UNITS/ML, 1ML IV PRN ×3 (08:17→22:00)
[2018-06-03] MEDS: SODIUM CHLORIDE FLUSH 10ML SYR IVF SCH ×2 (08:26→20:29)
[2018-06-03] MEDS ORDERED: ATORVASTATIN 20 MG TABLET PO SCH ×2 (09:00→21:00)
[2018-06-03] MEDS: SENNA/DOCUSATE TABLET PO SCH ×2 (09:00→20:43)
[2018-06-03] MEDS ORDERED: NICOTINE 14MG/24 HR PATCH.TD24 TD SCH (13:00)
[2018-06-03 14:23] VITALS: BP 138/76
[2018-06-03 20:47] VITALS: BP 114/68
[2018-06-03] MEDS: HEPARIN 25,000 UNITS/500ML PMX 500 ML IV PRN (23:43)
[2018-06-04 00:23] VITALS: BP 124/72
[2018-06-04] MEDS: OXYcodone/APAP 7.5/325MG TABLET PO PRN ×3 (00:51→09:08)
[2018-06-04] MEDS: ACETAMINOPHEN 325 MG TABLET PO PRN ×3 (03:59→11:56)
[2018-06-04 06:36] LABS: BASOPHILS # (AUTO) 0.08 x10^3/uL (0-0.1); BASOPHILS % (AUTO) 1 % (0-1); EOSINOPHILS % (AUTO) 1 % (1-7); LYMPHOCYTES # (AUTO) 3.38 x10^3/uL (1-3.4); LYMPHOCYTES % (AUTO) 30 % (22-44); MD NO; MEAN CORPUSCULAR HEMOGLOBIN 31.7 pg (27.5-34.5); MEAN CORPUSCULAR HGB CONC 34.1 g/dL (33.2-36.2); MEAN CORPUSCULAR VOLUME 92.8 fL (81-97); MEAN PLATELET VOLUME 7.7 fL (7.4-10.4); MONOCYTES # (AUTO) 0.85 x10^3/uL (0.2-0.8); MONOCYTES % (AUTO) 8 % (2-9); NEUTROPHILS # (AUTO) 6.83 x10^3/uL (1.8-6.8); NEUTROPHILS % (AUTO) 61 % (42-75); PLATELET COUNT 246 x10^3/uL (130-400); RED BLOOD COUNT 4.16 x10^6/uL (4.38-5.82); RED CELL DISTRIBUTION WIDTH 14.4 % (9.4-14.8)
[2018-06-04 06:56] LABS: CHLORIDE 107 mmol/L (98-107)
[2018-06-04 07:21] LABS: ANION GAP 7 mmol/L (5-15); CALCIUM 8.5 mg/dL (8.5-10.1); CREATININE 0.79 mg/dL (0.7-1.3)
[2018-06-04 08:00] VITALS: BP 153/90
[2018-06-04] MEDS: FLUOXETINE HCL 20 MG CAPSULE PO SCH (08:54)
[2018-06-04] MEDS: LISINOPRIL 10 MG TABLET PO SCH (08:54)
[2018-06-04] MEDS: SODIUM CHLORIDE FLUSH 10ML SYR IVF SCH (09:00)
[2018-06-04] MEDS ORDERED: RIVA15TA PO (09:48)
[2018-06-04] MEDS ORDERED: RIVAROXABAN 15 MG TABLET PO SCH ×2 (11:30→17:00)
[2018-06-07] MEDS ORDERED: HYDR-3307 PO ×2 (19:35)
== END 2018-06-04 12:39 | disposition home or self-care (01) | DRG 176 ==
LOC: ED 20:46 → EDIP 21:56 → 4EST 22:49 → DCLOUNGE 06-04 12:30
PROVIDERS: ADMIT Internal Medicine; ATTEND Internal Medicine
DX: I26.99 Other pulmonary embolism without acute cor pulmonale (principal); I50.22 Chronic systolic (congestive) heart failure; D72.829 Elevated white blood cell count, unspecified; E11.65 Type 2 diabetes mellitus with hyperglycemia; E78.5 Hyperlipidemia, unspecified; F17.210 Nicotine dependence, cigarettes, uncomplicated; I11.0 Hypertensive heart disease with heart failure; I25.10 Atherosclerotic heart disease of native coronary artery without angina pectoris; I35.8 Other nonrheumatic aortic valve disorders; J45.909 Unspecified asthma, uncomplicated; Z82.49 Family history of ischemic heart disease and other diseases of the circulatory system; Z83.3 Family history of diabetes mellitus; Z86.73 Personal history of transient ischemic attack (TIA), and cerebral infarction without residual deficits; I25.2 Old myocardial infarction; Z95.5 Presence of coronary angioplasty implant and graft
CPT/HCPCS: 36415; 71046; 71275; 80048; 80053; 83036; 84484; 85025; 85520; 93005; 93306; 93970; 96374; G0378; J1644; Q9967

== ENCOUNTER 2018-06-19 19:29 | Emergency (ER) | payer MEDICAID ==
[~2018-06-19] VITALS: Ht 172.7 cm; Wt 108.6 kg
[~2018-06-19 19:29] MED LIST changes: +ASPI-515 PO; +ATOR20TA86 MT; +HYDR-3307 PO; +RIVA15TA PO; +TRAM50TA2 PO; +TRAZ50TA66 PO
[2018-06-19] MEDS ORDERED: MORPHINE SULFATE 4 MG/ML, 1ML ONE (20:54)
[2018-06-19] MEDS ORDERED: ONDANSETRON 2MG/ML, 2ML ONE (20:54)
[2018-06-19] MEDS ORDERED: ONDANSETRON 2MG/ML, 2ML IVPush ONE (21:00)
[2018-06-19] MEDS ORDERED: MORPHINE SULFATE 4 MG/ML, 1ML IVPush PRN (21:00)
[2018-06-19 21:29] LABS: BASOPHILS # (AUTO) 0.05 x10^3/uL (0-0.1); BASOPHILS % (AUTO) 1 % (0-1); EOSINOPHILS # (AUTO) 0.23 x10^3/uL (0-0.4); EOSINOPHILS % (AUTO) 3 % (1-7); LYMPHOCYTES # (AUTO) 2.22 x10^3/uL (1-3.4); LYMPHOCYTES % (AUTO) 24 % (22-44); MD NO; MEAN CORPUSCULAR HEMOGLOBIN 30.9 pg (27.5-34.5); MEAN CORPUSCULAR HGB CONC 33.3 g/dL (33.2-36.2); MEAN CORPUSCULAR VOLUME 92.8 fL (81-97); MEAN PLATELET VOLUME 7.5 fL (7.4-10.4); MONOCYTES # (AUTO) 0.85 x10^3/uL (0.2-0.8); MONOCYTES % (AUTO) 9 % (2-9); NEUTROPHILS # (AUTO) 5.82 x10^3/uL (1.8-6.8); NEUTROPHILS % (AUTO) 63 % (42-75); PLATELET COUNT 295 x10^3/uL (130-400); RED BLOOD COUNT 4.38 x10^6/uL (4.38-5.82); RED CELL DISTRIBUTION WIDTH 14.2 % (9.4-14.8)
[2018-06-19 21:37] LABS: MICROSCOPIC NOT IND
[2018-06-19 21:40] LABS: CULTURE INDICATED? NO
[2018-06-19 21:41] LABS: ALANINE AMINOTRANSFERASE 50 U/L (12-78); ALBUMIN 3.3 g/dL (3.4-5.0); ANION GAP 7 mmol/L (5-15); CALCIUM 8.1 mg/dL (8.5-10.1); CHLORIDE 110 mmol/L (98-107); CREATININE 0.69 mg/dL (0.7-1.3)
[2018-06-19 21:44] LABS: ALKALINE PHOSPHATASE 80 U/L (45-117); BILIRUBIN,TOTAL 0.2 mg/dL (0.2-1.0)
--- NOTE | 2018-06-19 21:57 | NUR ---
Pt reports R sided groin pain, hx of hernia, states he has had it repaired but multiple issues with pain. States this pain feels similar just worse
--- NOTE | 2018-06-19 22:13 | NUR ---
Pt reports decreased pain after med administration
--- NOTE | 2018-06-19 22:16 | NUR ---
Pt denies need for BM up to this point during ED visit
[2018-06-19 22:50] VITALS: BP 109/63
--- NOTE | 2018-06-19 22:50 | NUR ---
Discharge instructions discussed with patient, verbalizes understanding. Prescription provided to patient with instruction for use. Patient instructed not to drive home, verbalizes understanding. Patient ambulates independently with steady gait.
== END 2018-06-19 22:52 | disposition home or self-care (01) ==
LOC: ED 20:47
DX: R11.2 Nausea with vomiting, unspecified (principal); R19.7 Diarrhea, unspecified; R10.30 Lower abdominal pain, unspecified; I10 Essential (primary) hypertension; E11.9 Type 2 diabetes mellitus without complications; E78.5 Hyperlipidemia, unspecified; G43.909 Migraine, unspecified, not intractable, without status migrainosus; I25.2 Old myocardial infarction; I25.10 Atherosclerotic heart disease of native coronary artery without angina pectoris; Z86.73 Personal history of transient ischemic attack (TIA), and cerebral infarction without residual deficits; Z87.891 Personal history of nicotine dependence; Z72.9 Problem related to lifestyle, unspecified
CPT/HCPCS: 36415; 80053; 81003; 85025; 96374; 96375; 99283; J2405

== ENCOUNTER 2018-06-24 21:27 | Emergency (ER) | payer MEDICAID ==
[~2018-06-24] VITALS: Ht 172.7 cm; Wt 107.2 kg
[2018-06-24 21:50] VITALS: BP 119/79
--- NOTE | 2018-06-24 22:19 | NUR ---
pt in wn in [facility]. dr morgan at bedside with patient for history and assessment.
[2018-06-24 22:47] LABS: BASOPHILS # (AUTO) 0.04 x10^3/uL (0-0.1); BASOPHILS % (AUTO) 0 % (0-1); EOSINOPHILS # (AUTO) 0.25 x10^3/uL (0-0.4); EOSINOPHILS % (AUTO) 3 % (1-7); LYMPHOCYTES # (AUTO) 2.35 x10^3/uL (1-3.4); LYMPHOCYTES % (AUTO) 23 % (22-44); MD NO; MEAN CORPUSCULAR HEMOGLOBIN 31.5 pg (27.5-34.5); MEAN CORPUSCULAR HGB CONC 33.8 g/dL (33.2-36.2); MEAN CORPUSCULAR VOLUME 93.1 fL (81-97); MEAN PLATELET VOLUME 7.5 fL (7.4-10.4); MONOCYTES # (AUTO) 1.02 x10^3/uL (0.2-0.8); MONOCYTES % (AUTO) 10 % (2-9); NEUTROPHILS % (AUTO) 64 % (42-75); PLATELET COUNT 309 x10^3/uL (130-400); RED CELL DISTRIBUTION WIDTH 14.1 % (9.4-14.8)
[2018-06-24 22:59] LABS: INTERNATIONAL NORMALIZED RATIO 0.99 (0.93-1.1); PROTHROMBIN TIME 10.5 Seconds (9.6-11.5)
[2018-06-24 23:00] LABS: ALANINE AMINOTRANSFERASE 46 U/L (12-78); ALBUMIN 3.3 g/dL (3.4-5.0); ANION GAP 8 mmol/L (5-15); CALCIUM 8.7 mg/dL (8.5-10.1); CHLORIDE 107 mmol/L (98-107)
[2018-06-24 23:03] LABS: ALKALINE PHOSPHATASE 92 U/L (45-117); BILIRUBIN,TOTAL 0.4 mg/dL (0.2-1.0); CREATININE 1.18 mg/dL (0.7-1.3); TOTAL PROTEIN 7.3 g/dL (6.4-8.2)
[2018-06-24] MEDS ORDERED: MAALOX/HYOSCYAMINE/LIDOCAINE 45 ML BTL ONE (23:37)
--- NOTE | 2018-06-24 23:45 | NUR ---
pt medicated per mar.
[2018-06-25] MEDS ORDERED: MAALOX/HYOSCYAMINE/LIDOCAINE 45 ML BTL PO ONE
--- NOTE | 2018-06-25 | NUR ---
PT D/C WITH D/C SUMMARY. ALL QUESTIONS ANSWERED. PT DENIES ANY OTHER NEEDS PERTAINING TO THIS VISIT.
== END 2018-06-25 00:03 | disposition home or self-care (01) ==
LOC: ED 22:36
DX: K62.5 Hemorrhage of anus and rectum (principal); R19.7 Diarrhea, unspecified; R11.0 Nausea; I25.10 Atherosclerotic heart disease of native coronary artery without angina pectoris; G43.909 Migraine, unspecified, not intractable, without status migrainosus; I11.9 Hypertensive heart disease without heart failure; E11.9 Type 2 diabetes mellitus without complications; I25.2 Old myocardial infarction; E78.5 Hyperlipidemia, unspecified; Z86.73 Personal history of transient ischemic attack (TIA), and cerebral infarction without residual deficits; Z90.89 Acquired absence of other organs; Z90.49 Acquired absence of other specified parts of digestive tract; Z72.9 Problem related to lifestyle, unspecified
CPT/HCPCS: 36415; 80053; 83690; 85025; 85610; 86850; 86900; 99283

== ENCOUNTER 2018-06-30 23:10 | Emergency (ER) | payer MEDICAID ==
[~2018-06-30] VITALS: Ht 172.7 cm; Wt 109.1 kg
[2018-06-30 23:18] VITALS: BP 103/73
[2018-07-01] MEDS ORDERED: AMOXICILLIN 500 MG CAPSULE PO ONE (02:00)
[2018-07-01] MEDS ORDERED: HYDROcodone/APAP 5/325 TABLET ONE (02:29)
[2018-07-01] MEDS ORDERED: HYDROcodone/APAP 5/325 TABLET PO ONE (02:30)
== END 2018-07-01 02:52 | disposition home or self-care (01) ==
LOC: ED 07-01 00:52
DX: K08.89 Other specified disorders of teeth and supporting structures (principal); I25.2 Old myocardial infarction; I25.10 Atherosclerotic heart disease of native coronary artery without angina pectoris; I11.9 Hypertensive heart disease without heart failure; E11.9 Type 2 diabetes mellitus without complications; J45.909 Unspecified asthma, uncomplicated; E78.5 Hyperlipidemia, unspecified; Z86.73 Personal history of transient ischemic attack (TIA), and cerebral infarction without residual deficits; Z87.891 Personal history of nicotine dependence; Z90.49 Acquired absence of other specified parts of digestive tract
CPT/HCPCS: 99283

== ENCOUNTER 2018-09-19 17:39 | Emergency (ER) | payer MEDICAID ==
[~2018-09-19] VITALS: Ht 172.7 cm; Wt 117.2 kg
[2018-09-19 18:59] VITALS: BP 122/88
== END 2018-09-19 19:01 | disposition home or self-care (01) ==
LOC: ED 18:11
DX: M77.11 Lateral epicondylitis, right elbow (principal); E11.9 Type 2 diabetes mellitus without complications; E78.5 Hyperlipidemia, unspecified; I25.2 Old myocardial infarction; I25.10 Atherosclerotic heart disease of native coronary artery without angina pectoris; I50.9 Heart failure, unspecified; Z90.89 Acquired absence of other organs; Z72.89 Other problems related to lifestyle
CPT/HCPCS: 99283

== ENCOUNTER 2018-10-30 17:13 | Emergency (ER) | payer MEDICAID ==
[~2018-10-30] VITALS: Ht 172.7 cm; Wt 113.8 kg
[2018-10-30 17:14] VITALS: BP 127/81
[2018-10-30] MEDS ORDERED: HYDROcodone/APAP 5/325 TABLET PO ONE (17:30)
[2018-10-30] MEDS ORDERED: HYDROcodone/APAP 5/325 TABLET ONE (17:35)
--- NOTE | 2018-10-30 18:13 | NUR ---
Patient/Caregiver given discharge instructions and they have confirmed that they understand the instructions. Patient ambulatory with steady gait.
[2018-10-30] MEDS ORDERED: ASPIRIN 81 MG TABLET CHEW ONE (18:15)
== END 2018-10-30 18:13 | disposition home or self-care (01) ==
LOC: ED 18:10
DX: K04.7 Periapical abscess without sinus (principal); K02.9 Dental caries, unspecified; E11.9 Type 2 diabetes mellitus without complications; I25.10 Atherosclerotic heart disease of native coronary artery without angina pectoris; J45.909 Unspecified asthma, uncomplicated; E78.5 Hyperlipidemia, unspecified; I25.2 Old myocardial infarction; I10 Essential (primary) hypertension; Z90.89 Acquired absence of other organs; Z90.49 Acquired absence of other specified parts of digestive tract; Z98.61 Coronary angioplasty status; Z86.73 Personal history of transient ischemic attack (TIA), and cerebral infarction without residual deficits
CPT/HCPCS: 99283

== ENCOUNTER 2018-10-31 18:20 | Emergency (ER) | payer MEDICAID ==
[~2018-10-31] VITALS: Ht 172.7 cm; Wt 114.0 kg
[2018-10-31 18:27] VITALS: BP 163/91
[2018-10-31] MEDS ORDERED: HYDROcodone/APAP 5/325 TABLET ONE (19:23)
[2018-10-31] MEDS ORDERED: HYDROcodone/APAP 5/325 TABLET PO ONE (19:30)
== END 2018-10-31 19:34 | disposition home or self-care (01) ==
LOC: ED 19:24
DX: K04.7 Periapical abscess without sinus (principal); I10 Essential (primary) hypertension; E11.9 Type 2 diabetes mellitus without complications; G43.909 Migraine, unspecified, not intractable, without status migrainosus; I25.2 Old myocardial infarction; E78.5 Hyperlipidemia, unspecified; Z72.89 Other problems related to lifestyle; Z86.73 Personal history of transient ischemic attack (TIA), and cerebral infarction without residual deficits
CPT/HCPCS: 99281; 99282

== ENCOUNTER 2018-11-02 19:18 | Emergency (ER) | payer MEDICAID ==
[~2018-11-02] VITALS: Ht 172.7 cm; Wt 113.5 kg
[2018-11-02 19:19] VITALS: BP 136/81
[2018-11-02] MEDS ORDERED: HYDROcodone/APAP 5/325 TABLET ONE (19:50)
[2018-11-02] MEDS ORDERED: CLINDAMYCIN 150 MG/ML, 6ML IM ONE (20:00)
[2018-11-02] MEDS ORDERED: HYDROcodone/APAP 5/325 TABLET PO ONE (20:00)
[2018-11-02] MEDS ORDERED: CLINDAMYCIN 150 MG/ML, 6ML ONE (20:12)
== END 2018-11-02 20:48 | disposition home or self-care (01) ==
LOC: ED 20:19
DX: K04.7 Periapical abscess without sinus (principal); K02.9 Dental caries, unspecified; E11.9 Type 2 diabetes mellitus without complications; I25.10 Atherosclerotic heart disease of native coronary artery without angina pectoris; G43.909 Migraine, unspecified, not intractable, without status migrainosus; J45.909 Unspecified asthma, uncomplicated; I10 Essential (primary) hypertension; Z86.711 Personal history of pulmonary embolism
CPT/HCPCS: 96372; 99283; S0077

== ENCOUNTER 2018-12-25 16:15 | Emergency (ER) | payer MEDICAID ==
[~2018-12-25] VITALS: Ht 172.7 cm; Wt 117.0 kg
[2018-12-25 18:58] VITALS: BP 137/83
== END 2018-12-25 19:59 | disposition home or self-care (01) ==
LOC: ED 16:45
DX: S39.012A Strain of muscle, fascia and tendon of lower back, initial encounter (principal); M48.061 Spinal stenosis, lumbar region without neurogenic claudication; I11.9 Hypertensive heart disease without heart failure; E11.9 Type 2 diabetes mellitus without complications; I25.10 Atherosclerotic heart disease of native coronary artery without angina pectoris; J45.909 Unspecified asthma, uncomplicated; I25.2 Old myocardial infarction; Z86.73 Personal history of transient ischemic attack (TIA), and cerebral infarction without residual deficits; Z90.49 Acquired absence of other specified parts of digestive tract; X58.XXXA Exposure to other specified factors, initial encounter; Y93.89 Activity, other specified; Y92.89 Other specified places as the place of occurrence of the external cause; Y99.8 Other external cause status
CPT/HCPCS: 72148; 96372; 99284; J1885

== ENCOUNTER 2019-11-18 17:49 | Observation (INO) | payer MEDICAID ==
[~2019-11-18] VITALS: Ht 172.7 cm; Wt 142.0 kg
[~2019-11-18 17:49] MED LIST changes: -ATOR20TA86 MT; +ATOR20TA86 PO; +HYDR-3246 PO; -HYDR-3307 PO; +HYDR-826 PO; -HYDR25TA11 PO; +INDO25CA22 PO; -INDO25CA5 PO; +SIMV20TA19 PO; -SIMV20TA3 PO
[2019-11-18] MEDS ORDERED: NITROGLYCERIN SINGLE TAB 0.4 MG SL ONE (18:37)
[2019-11-18] MEDS: NITROGLYCERIN SINGLE TAB 0.4 MG SL PRN ×3 (18:39→18:52)
--- NOTE | 2019-11-18 18:45 | NUR ---
PT BIB P/V FOR CP SINCE 1330 THAT WAS NOT REPRODUCIBLE AND DESCRIBED A SHARP, PRESSURE PAIN THAT RADIATES TO HS BACK. PT IN PROCESS OF GETTING NITROX3 AND REEVALUATE PAIN. PT ON MONITOR AND ON 2 LITERS OF OXYGEN. IV STARTED.
--- NOTE | 2019-11-18 18:46 | NUR ---
requested records from [facility].
[2019-11-18 18:47] LABS: BASOPHILS # (AUTO) 0.04 x10^3/uL (0-0.1); BASOPHILS % (AUTO) 0 % (0-1); EOSINOPHILS # (AUTO) 0.11 x10^3/uL (0-0.4); EOSINOPHILS % (AUTO) 1 % (1-7); LYMPHOCYTES # (AUTO) 1.87 x10^3/uL (1-3.4); LYMPHOCYTES % (AUTO) 15 % (22-44); MD NO; MEAN CORPUSCULAR HGB CONC 33.7 g/dL (33.2-36.2); MEAN PLATELET VOLUME 7.9 fL (7.4-10.4); MONOCYTES # (AUTO) 0.85 x10^3/uL (0.2-0.8); MONOCYTES % (AUTO) 7 % (2-9); NEUTROPHILS # (AUTO) 10.02 x10^3/uL (1.8-6.8); NEUTROPHILS % (AUTO) 78 % (42-75); PLATELET COUNT 297 x10^3/uL (130-400); RED BLOOD COUNT 5.11 x10^6/uL (4.38-5.82); RED CELL DISTRIBUTION WIDTH 13.9 % (9.4-14.8)
[2019-11-18] MEDS ORDERED: ONDANSETRON 2MG/ML, 2ML ONE (18:47)
[2019-11-18 19:00] LABS: ALANINE AMINOTRANSFERASE 42 U/L (12-78); ALBUMIN 3.3 g/dL (3.4-5.0); ANION GAP 7 mmol/L (5-15); CALCIUM 9.2 mg/dL (8.5-10.1); CHLORIDE 106 mmol/L (98-107); CREATININE 1.03 mg/dL (0.7-1.3)
[2019-11-18] MEDS ORDERED: MORPHINE SULFATE 4 MG/ML, 1ML ONE ×2 (19:00→19:54)
[2019-11-18] MEDS ORDERED: ONDANSETRON 2MG/ML, 2ML IVPush ONE (19:00)
[2019-11-18] MEDS ORDERED: ASPIRIN 81 MG TABLET CHEW ONE (19:00)
[2019-11-18 19:04] LABS: ALKALINE PHOSPHATASE 103 U/L (45-117); BILIRUBIN,TOTAL 0.3 mg/dL (0.2-1.0); TOTAL PROTEIN 7.9 g/dL (6.4-8.2); TROPONIN I < 0.015 ng/mL (0.000-0.045)
[2019-11-18] MEDS: MORPHINE SULFATE 4 MG/ML, 1ML IVPush PRN ×2 (19:06→19:57)
--- NOTE | 2019-11-18 19:12 | NUR ---
PT TOOK 81 MG ASA FORESTRY TECHNICIAN.
[2019-11-18] MEDS ORDERED: ASPIRIN 81 MG TABLET CHEW PO ONE (19:30)
--- NOTE | 2019-11-18 19:41 | NUR ---
PT REPORTS PAIN IS DOWN FROM 8/10 TO 6/10. WILL REMEDICATE WITH MORPHINE AT ABOUT 2000 PER MD ORDER.
[2019-11-18] MEDS ORDERED: VITAMIN B12 (20:01)
[2019-11-18] MEDS ORDERED: BUPR-173 PO (20:01)
[2019-11-18] MEDS ORDERED: DIVA250T4 PO (20:01)
[2019-11-18] MEDS ORDERED: LISI-170 PO (20:01)
[2019-11-18] MEDS ORDERED: VITAMIN B12 PO (20:01)
--- NOTE | 2019-11-18 20:10 | NUR ---
PT REMEDICATED FOR PAIN. WAITING FOR ADMIT BED. PT UPDATED ON POC.
--- NOTE | 2019-11-18 20:43 | NUR ---
REPORT CALLED TO RYANNE LIVINGSTON. PAIN 10 AFTER MORPHINE. ADMITTING MD AT BEDSIDE FOR ADMIT. WAITING FOR TRANSPORT.
[2019-11-18 21:00] VITALS: BP 149/103
[2019-11-18] MEDS ORDERED: BACLOFEN 10 MG TABLET PO PRN (21:30)
[2019-11-18] MEDS ORDERED: TEMAZEPAM 15 MG CAPSULE PO PRN (21:30)
[2019-11-18] MEDS ORDERED: MAALOX/HYOSCYAMINE/LIDOCAINE 45 ML BTL PO ONE (21:30)
[2019-11-18] MEDS ORDERED: DOCUSATE 100 MG CAPSULE PO PRN (21:30)
[2019-11-18] MEDS ORDERED: hydrALAzine 20 MG/ML, 1ML IVPush PRN (21:30)
[2019-11-18] MEDS ORDERED: ONDANSETRON 2MG/ML, 2ML IVPush PRN (21:30)
[2019-11-18] MEDS ORDERED: ACETAMINOPHEN 325 MG TABLET PO PRN (21:30)
[2019-11-18] MEDS ORDERED: ASA/APAP/ CAFFEINE TABLET PO PRN (21:30)
[2019-11-18] MEDS ORDERED: NITROGLYCERIN 0.4 MG BOTTLE (25 TABS) SL PRN (21:30)
[2019-11-18] MEDS ORDERED: GUAIFENESIN/DM 200-20MG, 10ML UDC PO PRN (21:30)
[2019-11-18] MEDS ORDERED: NITROGLYCERIN 0.4 MG/SPRAY SL PRN (21:30)
[2019-11-18] MEDS: ENOXAPARIN 40 MG/0.4 ML SQ SCH (21:54)
[2019-11-18] MEDS: HYDROcodone/APAP 5/325 TABLET PO PRN (22:01)
[2019-11-18] MEDS: INSULIN REGULAR 100 UNITS/ML, 3ML VIAL SQ-INSULIN SCH (22:55)
[2019-11-18 23:15] LABS: TROPONIN I < 0.015 ng/mL (0.000-0.045)
[2019-11-18] MEDS: morphine SULFATE 10 MG/ML, 1ML IVPush PRN (23:22)
[2019-11-19 00:33] VITALS: BP 132/87
[2019-11-19] MEDS ORDERED: FURO20TA3 PO (01:08)
[2019-11-19] MEDS ORDERED: QUET25TA70 PO (01:08)
[2019-11-19] MEDS ORDERED: POTA20TA14 PO (01:08)
[2019-11-19] MEDS ORDERED: METF500T17 PO (01:08)
[2019-11-19] MEDS: morphine SULFATE 10 MG/ML, 1ML IVPush PRN ×4 (01:09→20:20)
[2019-11-19] MEDS: HYDROcodone/APAP 5/325 TABLET PO PRN ×2 (03:29→11:31)
[2019-11-19 05:54] LABS: BASOPHILS # (AUTO) 0.07 x10^3/uL (0-0.1); BASOPHILS % (AUTO) 1 % (0-1); EOSINOPHILS # (AUTO) 0.07 x10^3/uL (0-0.4); EOSINOPHILS % (AUTO) 1 % (1-7); LYMPHOCYTES # (AUTO) 1.42 x10^3/uL (1-3.4); LYMPHOCYTES % (AUTO) 15 % (22-44); MD NO; MEAN CORPUSCULAR HGB CONC 33.4 g/dL (33.2-36.2); MEAN PLATELET VOLUME 7.9 fL (7.4-10.4); MONOCYTES # (AUTO) 0.72 x10^3/uL (0.2-0.8); MONOCYTES % (AUTO) 8 % (2-9); NEUTROPHILS # (AUTO) 7.31 x10^3/uL (1.8-6.8); NEUTROPHILS % (AUTO) 76 % (42-75); PLATELET COUNT 272 x10^3/uL (130-400); RED BLOOD COUNT 4.83 x10^6/uL (4.38-5.82)
[2019-11-19 06:02] LABS: ANION GAP 5 mmol/L (5-15); CALCIUM 8.9 mg/dL (8.5-10.1); CHLORIDE 106 mmol/L (98-107)
[2019-11-19 06:08] LABS: CREATININE 0.79 mg/dL (0.7-1.3); TROPONIN I < 0.015 ng/mL (0.000-0.045)
[2019-11-19 06:56] VITALS: BP 145/88
[2019-11-19] MEDS: INSULIN REGULAR 100 UNITS/ML, 3ML VIAL SQ-INSULIN SCH ×4 (07:00→20:58)
[2019-11-19] MEDS ORDERED: REGADENOSON 0.4 MG/5 ML SYRINGE ONE (08:23)
[2019-11-19] MEDS: ASPIRIN 81 MG TABLET EC PO SCH (08:29)
[2019-11-19] MEDS: LISINOPRIL 20 MG TABLET PO SCH ×2 (08:29→20:20)
[2019-11-19] MEDS: BUPROPION SR 100 MG TABLET PO SCH (08:29)
[2019-11-19] MEDS: FAMOTIDINE 20 MG TABLET PO SCH ×2 (08:29→20:20)
[2019-11-19] MEDS: DIVALPROEX 250 MG TABLET.DR PO SCH (08:29)
[2019-11-19] MEDS: ATORVASTATIN 20 MG TABLET PO SCH (08:29)
[2019-11-19 13:26] VITALS: BP 125/79
[2019-11-19 19:44] VITALS: BP 130/83
[2019-11-19] MEDS: ENOXAPARIN 40 MG/0.4 ML SQ SCH (20:20)
[2019-11-20] MEDS: morphine SULFATE 10 MG/ML, 1ML IVPush PRN ×3 (01:06→09:23)
[2019-11-20 01:32] VITALS: BP 136/75
[2019-11-20] MEDS: HYDROcodone/APAP 5/325 TABLET PO PRN ×2 (04:51→12:51)
[2019-11-20] MEDS: INSULIN REGULAR 100 UNITS/ML, 3ML VIAL SQ-INSULIN SCH ×2 (08:18→11:36)
[2019-11-20] MEDS: FAMOTIDINE 20 MG TABLET PO SCH (08:20)
[2019-11-20] MEDS: BUPROPION SR 100 MG TABLET PO SCH (08:20)
[2019-11-20] MEDS: ASPIRIN 81 MG TABLET EC PO SCH (08:20)
[2019-11-20] MEDS: DIVALPROEX 250 MG TABLET.DR PO SCH (08:21)
[2019-11-20] MEDS: LISINOPRIL 20 MG TABLET PO SCH (08:21)
[2019-11-20] MEDS: ATORVASTATIN 20 MG TABLET PO SCH (08:21)
[2019-11-20 09:02] VITALS: BP 122/81
[2019-11-20 12:57] VITALS: BP 103/69
== END 2019-11-20 15:41 | disposition home or self-care (01) ==
LOC: ED 20:16 → EDIP 20:24 → INTOOBSV 20:24 → 5SO 20:46 → DCLOUNGE 11-20 15:32
PROVIDERS: ADMIT Internal Medicine; ATTEND Internal Medicine
DX: I16.1 Hypertensive emergency (principal); R07.89 Other chest pain; I25.10 Atherosclerotic heart disease of native coronary artery without angina pectoris; I10 Essential (primary) hypertension; E11.9 Type 2 diabetes mellitus without complications; E78.5 Hyperlipidemia, unspecified; F41.9 Anxiety disorder, unspecified; M25.551 Pain in right hip; E66.01 Morbid (severe) obesity due to excess calories; I25.2 Old myocardial infarction; Z86.711 Personal history of pulmonary embolism; Z87.891 Personal history of nicotine dependence; Z79.899 Other long term (current) drug therapy; Z86.73 Personal history of transient ischemic attack (TIA), and cerebral infarction without residual deficits; Z95.5 Presence of coronary angioplasty implant and graft; E78.00 Pure hypercholesterolemia, unspecified; Z68.42 Body mass index [BMI] 45.0-49.9, adult; Z79.82 Long term (current) use of aspirin
CPT/HCPCS: 36415; 71045; 78452; 80048; 80053; 82962; 84443; 84484; 85025; 85379; 93005; 93017; 93306; 96372; 96374; 96375; 96376; 99285; A9502; G0378; J1650; J1815; J2270; J2405; J2785

== ENCOUNTER 2019-12-08 12:34 | Emergency (ER) | payer MEDICAID ==
[~2019-12-08] VITALS: Ht 172.7 cm; Wt 138.2 kg
[~2019-12-08 12:34] MED LIST changes: +BUPR-173 PO; +DIVA250T4 PO; +FURO20TA3 PO; +LISI-170 PO; +METF500T17 PO; +POTA20TA14 PO; +QUET25TA70 PO; +VITAMIN B12; +VITAMIN B12 PO
--- NOTE | 2019-12-08 13:12 | NUR ---
PT CAME IN CO OF CHEST PAIN THAT RADIATES TO THE LEFT SIDE. THE PAIN CAME ON SUDDENLY DURING PHYSICAL THERAPY. PT WAS RECENTLY HOSPITALIZED FOR A HYPERTENSIVE CRISIS BUT HAS BEEN CONTROLLING BP WITH MEDS. PT IS RESTING IN [facility]. EKG COMPLETE. CONNECTED TO MONITORING EQUIPMENT.
[2019-12-08] MEDS ORDERED: SODIUM CHLORIDE FLUSH 10ML SYR IVF ONE (13:30)
[2019-12-08 13:49] LABS: BASOPHILS # (AUTO) 0.08 x10^3/uL (0-0.1); BASOPHILS % (AUTO) 1 % (0-1); EOSINOPHILS # (AUTO) 0.21 x10^3/uL (0-0.4); EOSINOPHILS % (AUTO) 3 % (1-7); LYMPHOCYTES # (AUTO) 1.42 x10^3/uL (1-3.4); LYMPHOCYTES % (AUTO) 18 % (22-44); MD NO; MEAN CORPUSCULAR HEMOGLOBIN 29.9 pg (27.5-34.5); MEAN CORPUSCULAR HGB CONC 33.3 g/dL (33.2-36.2); MEAN CORPUSCULAR VOLUME 89.7 fL (81-97); MEAN PLATELET VOLUME 7.8 fL (7.4-10.4); MONOCYTES # (AUTO) 0.59 x10^3/uL (0.2-0.8); MONOCYTES % (AUTO) 8 % (2-9); NEUTROPHILS # (AUTO) 5.57 x10^3/uL (1.8-6.8); NEUTROPHILS % (AUTO) 71 % (42-75); PLATELET COUNT 267 x10^3/uL (130-400); RED BLOOD COUNT 4.83 x10^6/uL (4.38-5.82); RED CELL DISTRIBUTION WIDTH 14.6 % (9.4-14.8)
[2019-12-08 13:58] LABS: ALBUMIN 3.2 g/dL (3.4-5.0); ANION GAP 5 mmol/L (5-15); CALCIUM 9.2 mg/dL (8.5-10.1); CHLORIDE 111 mmol/L (98-107); CREATININE 0.85 mg/dL (0.7-1.3)
[2019-12-08] MEDS ORDERED: KETOROLAC 30 MG/1 ML ONE (13:59)
[2019-12-08] MEDS ORDERED: KETOROLAC 30 MG/1 ML IVPush ONE (14:00)
[2019-12-08 14:03] LABS: TROPONIN I < 0.015 ng/mL (0.000-0.045)
--- NOTE | 2019-12-08 14:17 | NUR ---
IV PLACED. PT MEDICATED WITH ORDERED MED FOR PAIN. PT CURRENTLY STATING THE CHEST PAIN IS INTERMITTANT. PT ON CARDIAC AND VITALS MONITORS. WILL CONTINUE TO MONITOR.
--- NOTE | 2019-12-08 15:07 | NUR ---
PT RESTING IN [facility]. VSS. NAD
[2019-12-08 15:41] VITALS: BP 145/79
== END 2019-12-08 15:43 | disposition home or self-care (01) ==
LOC: ED 13:51
DX: R07.89 Other chest pain (principal); R06.02 Shortness of breath; R11.0 Nausea; I10 Essential (primary) hypertension; E11.9 Type 2 diabetes mellitus without complications; G89.29 Other chronic pain; I25.10 Atherosclerotic heart disease of native coronary artery without angina pectoris; R94.31 Abnormal electrocardiogram [ECG] [EKG]; Z86.73 Personal history of transient ischemic attack (TIA), and cerebral infarction without residual deficits; Z87.891 Personal history of nicotine dependence
CPT/HCPCS: 36415; 71045; 80048; 82040; 84484; 85025; 85379; 93005; 96374; 99285; J1885

== ENCOUNTER 2020-01-03 17:24 | Emergency (ER) | payer MEDICAID ==
[~2020-01-03] VITALS: Ht 172.7 cm; Wt 136.1 kg
[2020-01-03 17:27] VITALS: BP 147/88
[2020-01-03] MEDS ORDERED: KETOROLAC 60 MG/2 ML ONE (17:58)
[2020-01-03] MEDS ORDERED: KETOROLAC 30 MG/1 ML IM ONE (18:00)
--- NOTE | 2020-01-03 19:04 | NUR ---
REPORT RECIEVED FROM OSHAUNESSY. NO S/S OF DISTRESS FROM PATIENT
== END 2020-01-03 19:26 | disposition home or self-care (01) ==
LOC: ED 18:23
DX: G89.29 Other chronic pain (principal); M13.151 Monoarthritis, not elsewhere classified, right hip; I10 Essential (primary) hypertension; E11.9 Type 2 diabetes mellitus without complications; E78.5 Hyperlipidemia, unspecified; I25.10 Atherosclerotic heart disease of native coronary artery without angina pectoris; I25.2 Old myocardial infarction; Z90.89 Acquired absence of other organs; Z86.73 Personal history of transient ischemic attack (TIA), and cerebral infarction without residual deficits; Z87.891 Personal history of nicotine dependence
CPT/HCPCS: 73502; 93005; 96372; 99283; J1885

== ENCOUNTER 2020-01-09 14:11 | Emergency (ER) | payer MEDICAID ==
[~2020-01-09] VITALS: Ht 172.7 cm; Wt 128.0 kg
[2020-01-09 14:19] VITALS: BP 170/86
[2020-01-09] MEDS ORDERED: PROCHLORPERAZINE 5 MG/ML, 2ML IVPush ONE (15:00)
[2020-01-09] MEDS ORDERED: SODIUM CHLORIDE FLUSH 10ML SYR IVF ONE (15:00)
[2020-01-09] MEDS ORDERED: DIPHENHYDRAMINE 50 MG/ML, 1ML IVPush ONE (15:00)
[2020-01-09 15:03] LABS: BASOPHILS % (AUTO) 1 % (0-1); EOSINOPHILS # (AUTO) 0.15 x10^3/uL (0-0.4); EOSINOPHILS % (AUTO) 2 % (1-7); LYMPHOCYTES # (AUTO) 1.52 x10^3/uL (1-3.4); LYMPHOCYTES % (AUTO) 21 % (22-44); MD NO; MEAN CORPUSCULAR HEMOGLOBIN 29.8 pg (27.5-34.5); MEAN CORPUSCULAR HGB CONC 33.3 g/dL (33.2-36.2); MEAN CORPUSCULAR VOLUME 89.7 fL (81-97); MEAN PLATELET VOLUME 7.4 fL (7.4-10.4); MONOCYTES # (AUTO) 0.55 x10^3/uL (0.2-0.8); MONOCYTES % (AUTO) 7 % (2-9); NEUTROPHILS # (AUTO) 5.08 x10^3/uL (1.8-6.8); NEUTROPHILS % (AUTO) 69 % (42-75); PLATELET COUNT 301 x10^3/uL (130-400); RED BLOOD COUNT 4.88 x10^6/uL (4.38-5.82); RED CELL DISTRIBUTION WIDTH 14.7 % (9.4-14.8)
[2020-01-09] MEDS ORDERED: DIPHENHYDRAMINE 50 MG/ML, 1ML ONE (15:12)
[2020-01-09] MEDS ORDERED: PROCHLORPERAZINE 5 MG/ML, 2ML ONE (15:12)
[2020-01-09 15:13] LABS: ANION GAP 6 mmol/L (5-15); CALCIUM 8.7 mg/dL (8.5-10.1); CHLORIDE 111 mmol/L (98-107); CREATININE 0.69 mg/dL (0.7-1.3)
--- NOTE | 2020-01-09 17:19 | NUR ---
PT TO IMAGING AT THIS TIME.
[2020-01-09] MEDS ORDERED: OMNIPAQUE 350 MG/ML, 100ML BOTTLE ONE (17:40)
== END 2020-01-09 18:18 | disposition home or self-care (01) ==
LOC: ED 14:32
DX: R51 Headache (principal); R42 Dizziness and giddiness; R94.31 Abnormal electrocardiogram [ECG] [EKG]; I10 Essential (primary) hypertension; E11.9 Type 2 diabetes mellitus without complications; I25.10 Atherosclerotic heart disease of native coronary artery without angina pectoris; I25.2 Old myocardial infarction
CPT/HCPCS: 36415; 70450; 70496; 80048; 82040; 85025; 93005; 96374; 96375; 99285; J0780; J1200; Q9967

== ENCOUNTER 2020-02-11 19:26 | Emergency (ER) | payer MEDICAID ==
[~2020-02-11] VITALS: Ht 172.7 cm; Wt 128.0 kg
[~2020-02-11 19:26] MED LIST changes: -ENAL20TA PO; +ENAL20TA9 PO
[2020-02-11] MEDS ORDERED: HYDROcodone/APAP 5/325 TABLET PO ONE (22:00)
[2020-02-11] MEDS ORDERED: HYDROcodone/APAP 5/325 TABLET ONE (22:05)
[2020-02-11 22:46] VITALS: BP 128/75
== END 2020-02-11 22:53 | disposition home or self-care (01) ==
LOC: ED 19:56
DX: G89.29 Other chronic pain (principal); M25.551 Pain in right hip; Z76.0 Encounter for issue of repeat prescription; I10 Essential (primary) hypertension; E78.5 Hyperlipidemia, unspecified; I25.2 Old myocardial infarction
CPT/HCPCS: 99283

== ENCOUNTER 2020-04-20 22:58 | Emergency (ER) | payer MEDICAID ==
[~2020-04-20] VITALS: Ht 172.7 cm; Wt 136.0 kg
[2020-04-21 00:35] LABS: BASOPHILS % (AUTO) 1 % (0-1); EOSINOPHILS % (AUTO) 2 % (1-7); LYMPHOCYTES % (AUTO) 18 % (22-44); MEAN CORPUSCULAR HEMOGLOBIN 29.7 pg (27.5-34.5); MEAN CORPUSCULAR HGB CONC 33.2 g/dL (33.2-36.2); MEAN PLATELET VOLUME 7.7 fL (7.4-10.4); MONOCYTES % (AUTO) 9 % (2-9); NEUTROPHILS % (AUTO) 71 % (42-75); PLATELET COUNT 292 x10^3/uL (130-400); RED BLOOD COUNT 4.31 x10^6/uL (4.38-5.82); RED CELL DISTRIBUTION WIDTH 14.3 % (9.4-14.8)
[2020-04-21 00:36] LABS: MD NO
[2020-04-21 00:45] LABS: ALANINE AMINOTRANSFERASE 38 U/L (12-78); ALBUMIN 3.2 g/dL (3.4-5.0); ANION GAP 7 mmol/L (5-15); CALCIUM 8.7 mg/dL (8.5-10.1); CHLORIDE 108 mmol/L (98-107); CREATININE 0.75 mg/dL (0.7-1.3)
[2020-04-21 00:50] LABS: ALKALINE PHOSPHATASE 132 U/L (45-117); BILIRUBIN,TOTAL 0.4 mg/dL (0.2-1.0); TOTAL PROTEIN 7.7 g/dL (6.4-8.2); TROPONIN I < 0.015 ng/mL (0.000-0.045)
[2020-04-21] MEDS ORDERED: MORPHINE SULFATE 4 MG/ML, 1ML IVPush PRN (01:00)
[2020-04-21] MEDS ORDERED: ONDANSETRON 2MG/ML, 2ML IVPush ONE (01:00)
[2020-04-21] MEDS ORDERED: ONDANSETRON 2MG/ML, 2ML ONE (01:20)
[2020-04-21] MEDS ORDERED: MORPHINE SULFATE 4 MG/ML, 1ML ONE (01:20)
[2020-04-21 01:29] VITALS: BP 127/76
--- NOTE | 2020-04-21 01:37 | NUR ---
LATE ENTRY SUMMARY NOTE: BIB [facility] FOR RIGHT HIP PAIN. PT STATES HE FELL OFF THE TOILET AT A REHAB FACILITY 2 WEEKS AFTER HIS SX. HIS SX WAS IN FEBRUARY. PT IS A POOR HISTORIAN AND THIS RN WAS UNABLE TO OBTAIN A CLEAR ANSWER TO WHAT CHANGED TONIGHT THAT MADE THE PT WANT TO COME TO THE ER. PT SITTING IN BED, CONNECTED TO ALL MONITORS, URINAL AND CALL LIGHT IN REACH. ALL NEEDS MET.
--- NOTE | 2020-04-21 02:06 | NUR ---
Patient given discharge instructions and they have confirmed that they understand the instructions. Patient ambulatory with walker.
== END 2020-04-21 02:09 | disposition home or self-care (01) ==
LOC: ED 04-21 00:35
DX: G89.29 Other chronic pain (principal); M25.551 Pain in right hip; R07.9 Chest pain, unspecified; I10 Essential (primary) hypertension; E11.9 Type 2 diabetes mellitus without complications; E78.5 Hyperlipidemia, unspecified; I25.2 Old myocardial infarction; I25.10 Atherosclerotic heart disease of native coronary artery without angina pectoris; J45.909 Unspecified asthma, uncomplicated; F17.200 Nicotine dependence, unspecified, uncomplicated; Z86.73 Personal history of transient ischemic attack (TIA), and cerebral infarction without residual deficits; Z86.711 Personal history of pulmonary embolism; Z90.49 Acquired absence of other specified parts of digestive tract; Z90.89 Acquired absence of other organs
CPT/HCPCS: 36415; 71045; 73502; 80053; 83880; 84484; 85025; 93005; 96374; 96375; 99285; J2270; J2405; 99284

== ENCOUNTER 2020-08-11 18:26 | Emergency (ER) | payer MEDICAID ==
[~2020-08-11] VITALS: Ht 172.7 cm; Wt 127.0 kg
[~2020-08-11 18:26] MED LIST changes: -ASPI-515 PO; -ASPI-650 PO; +ASPI-963 PO; +ASPI325T20 PO; -CLIN150C14 PO; +CLIN150C15 PO; -CYCL-259 PO; +CYCL10TA2 PO; +HYDR-1067 PO; -HYDR-3240 PO; -HYDR-3246 PO; +HYDR-3248 PO; +QUET25TA2 PO; -QUET25TA70 PO
[2020-08-11 18:31] VITALS: BP 130/74
--- NOTE | 2020-08-11 18:33 | NUR ---
PT BIB EMS FOR RIGHT HIP PAIN. PT HAD TOTAL HIP REPLACEMENT IN MAY AND FEELS IF HE IS BEHIND IN THE HEALING PROCESS. "I HAVENT DONE ANY PT. IM SICK OF BEING HURT. I CANT EVEN PUT MY OWN SOCKS ON. IM SICK OF ASKING FOR HELP. IM GETTING DEPRESSED OVER IT". DENIES SI/HI. PT RESTING IN [facility]. CONNECTED TO MONITORING EQUIPMENT.
== END 2020-08-11 19:33 | disposition home or self-care (01) ==
LOC: ED 19:15
DX: F41.1 Generalized anxiety disorder (principal); M25.551 Pain in right hip; I10 Essential (primary) hypertension; E11.9 Type 2 diabetes mellitus without complications; I25.2 Old myocardial infarction; I25.10 Atherosclerotic heart disease of native coronary artery without angina pectoris; M19.90 Unspecified osteoarthritis, unspecified site; J45.909 Unspecified asthma, uncomplicated; G43.909 Migraine, unspecified, not intractable, without status migrainosus; F17.200 Nicotine dependence, unspecified, uncomplicated; Z90.89 Acquired absence of other organs; Z86.73 Personal history of transient ischemic attack (TIA), and cerebral infarction without residual deficits
CPT/HCPCS: 99283

== ENCOUNTER 2020-08-19 21:44 | Emergency (ER) | payer MEDICAID ==
[~2020-08-19] VITALS: Ht 172.7 cm; Wt 125.0 kg
--- NOTE | 2020-08-19 21:50 | NUR ---
THIS IS A 54M BIB EMS FROM [facility], PT REPORTS SOB X2DAYS, HX OF ASTHMA AND REPORTS MOLD BEING IN HIS HOME. PT DENIES FEVER CHILLS AND ALL OTHER SYMPTOMS ASIDE FROM THE SOB. PT CONNECTED TO ALL MONITORING VSS.
--- NOTE | 2020-08-19 22:10 | NUR ---
Report received from MIKI Santiago. This RN to assume care.
[2020-08-19 23:05] LABS: BASOPHILS % (AUTO) 1 % (0-1); EOSINOPHILS % (AUTO) 2 % (1-7); LYMPHOCYTES % (AUTO) 20 % (22-44); MD NO; MEAN CORPUSCULAR HEMOGLOBIN 27.5 pg (27.5-34.5); MEAN PLATELET VOLUME 7.6 fL (7.4-10.4); MONOCYTES % (AUTO) 8 % (2-9); NEUTROPHILS % (AUTO) 69 % (42-75); PLATELET COUNT 297 x10^3/uL (130-400); RED BLOOD COUNT 3.84 x10^6/uL (4.38-5.82); RED CELL DISTRIBUTION WIDTH 15.4 % (9.4-14.8)
[2020-08-19 23:08] LABS: ALBUMIN 2.7 g/dL (3.4-5.0); ANION GAP 4 mmol/L (5-15); CALCIUM 8.3 mg/dL (8.5-10.1); CHLORIDE 115 mmol/L (98-107); CREATININE 0.73 mg/dL (0.7-1.3)
[2020-08-19 23:13] LABS: TROPONIN I < 0.015 ng/mL (0.000-0.045)
[2020-08-20 00:08] VITALS: BP 145/79
== END 2020-08-20 00:12 | disposition home or self-care (01) ==
LOC: ED 22:38
DX: R06.00 Dyspnea, unspecified (principal); I50.1 Left ventricular failure, unspecified; R07.9 Chest pain, unspecified; R94.31 Abnormal electrocardiogram [ECG] [EKG]; I11.9 Hypertensive heart disease without heart failure; E11.9 Type 2 diabetes mellitus without complications; I25.10 Atherosclerotic heart disease of native coronary artery without angina pectoris; I25.2 Old myocardial infarction; Z90.89 Acquired absence of other organs; Z86.73 Personal history of transient ischemic attack (TIA), and cerebral infarction without residual deficits; Z98.61 Coronary angioplasty status; F17.210 Nicotine dependence, cigarettes, uncomplicated
CPT/HCPCS: 36415; 71045; 80048; 82040; 83880; 84484; 85025; 93005; 99285; 99406

== ENCOUNTER 2020-09-20 14:27 | Emergency (ER) | payer MEDICAID ==
[~2020-09-20] VITALS: Ht 172.7 cm; Wt 130.2 kg
[~2020-09-20 14:27] MED LIST changes: -HYDR-1067 PO; +HYDR-2214 PO
--- NOTE | 2020-09-20 15:42 | NUR ---
INSPECTOR SUBASSEMBLY: PT TO ROOM FROM LOBBY, VIA W/C
--- NOTE | 2020-09-20 16:10 | NUR ---
Pt to radiology.
--- NOTE | 2020-09-20 16:13 | NUR ---
x-ray, us delay
[2020-09-20] MEDS ORDERED: MORPHINE SULFATE 4 MG/ML, 1ML ONE (16:15)
[2020-09-20] MEDS ORDERED: ONDANSETRON 2MG/ML, 2ML ONE (16:15)
--- NOTE | 2020-09-20 16:16 | NUR ---
Report for meal break given and care transferred.
--- NOTE | 2020-09-20 16:24 | NUR ---
BREAK RN: ULTRASOUND IN ROOM
[2020-09-20] MEDS ORDERED: ONDANSETRON 2MG/ML, 2ML IVPush ONE (16:30)
[2020-09-20] MEDS ORDERED: SODIUM CHLORIDE FLUSH 10ML SYR IVF ONE (16:30)
[2020-09-20] MEDS ORDERED: MORPHINE SULFATE 4 MG/ML, 1ML IVPush PRN (16:30)
--- NOTE | 2020-09-20 16:54 | NUR ---
Report received from meal break RN and care re-assumed. RN states she had everything ready for IV start and medical radiation therapist, but US tech was at bedside awaiting pt when he returned from radiology and would not allow for lights to be on to start line. RN handed closed topped vials of morphine and zofran for admin to pt to this RN. US tech noted still at bedside at this time.
[2020-09-20 17:36] LABS: BASOPHILS % (AUTO) 1 % (0-1); EOSINOPHILS % (AUTO) 3 % (1-7); LYMPHOCYTES % (AUTO) 16 % (22-44); MEAN CORPUSCULAR HEMOGLOBIN 26.4 pg (27.5-34.5); MEAN CORPUSCULAR HGB CONC 32.5 g/dL (33.2-36.2); MEAN PLATELET VOLUME 7.2 fL (7.4-10.4); MONOCYTES % (AUTO) 8 % (2-9); NEUTROPHILS % (AUTO) 72 % (42-75); PLATELET COUNT 337 x10^3/uL (130-400); RED BLOOD COUNT 4.14 x10^6/uL (4.38-5.82); RED CELL DISTRIBUTION WIDTH 15.7 % (9.4-14.8)
[2020-09-20 17:37] LABS: MD NO
--- NOTE | 2020-09-20 17:43 | NUR ---
Meds given with new IV started by MIKI Trent, and pt states almost instant relief of pain. VS reassessed and stage technician here for CT.
[2020-09-20 17:50] LABS: ALBUMIN 2.9 g/dL (3.4-5.0); ANION GAP 5 mmol/L (5-15); CALCIUM 8.7 mg/dL (8.5-10.1); CHLORIDE 110 mmol/L (98-107)
[2020-09-20 17:55] LABS: CREATININE 0.59 mg/dL (0.7-1.3)
[2020-09-20] MEDS ORDERED: FENTANYL PF 100 MCG/2ML ONE (18:20)
[2020-09-20] MEDS ORDERED: FENTANYL PF 100 MCG/2ML IVPush ONE (18:26)
--- NOTE | 2020-09-20 18:37 | NUR ---
Pt back from CT and pain increased from 5/10 to 7/10 on reassessment. MD notified and orders received. Pt medicated at this time with Fentanyl IVP as ordered and placed on 2L/min NC due to desaturation noted shortly after admin with good effect. Ice water brought to bedside after okay from MD received.
[2020-09-20 19:00] VITALS: BP 156/75
--- NOTE | 2020-09-20 19:00 | NUR ---
Pain decreased with moderate effect after second pain physical medicine teacher on reassessment. Pt resting quietly in darkened room with VS stable.
--- NOTE | 2020-09-20 19:12 | NUR ---
All results reviewed and chart marked for recheck by .
--- NOTE | 2020-09-20 19:23 | NUR ---
PA at bedside discussed plan to be d/c'd with pt recently. IV site d/c'd and pt getting dressed now in anticipation of d/c. Pt aware of his need to wait for d/c paperwork before leaving. Pt requesting a cab voucher back to [facility].
== END 2020-09-20 19:49 | disposition home or self-care (01) ==
LOC: ED 17:00
DX: M25.551 Pain in right hip (principal); R06.02 Shortness of breath; I25.2 Old myocardial infarction; M79.89 Other specified soft tissue disorders
CPT/HCPCS: 36415; 73502; 73700; 80048; 82040; 82550; 83880; 85025; 93005; 93971; 96374; 96375; 99285; J2270; J2405; J3010

== ENCOUNTER 2020-09-29 22:20 | Emergency (ER) | payer MEDICAID ==
[~2020-09-29] VITALS: Ht 172.7 cm; Wt 128.0 kg
--- NOTE | 2020-09-29 22:33 | NUR ---
PT BIB EMS FOR BILAT LOWER LEG SWELLING. RIGHT ONE MORE SO THAN LEFT. HX CHF. TAKES LASIX "DOUBLED THE DOSE RECENTLY" "BEEN GOING ON FOR A FEW WEEKS" +4 EDEMA BILATERALLY, VSS, NO SOB/WORK, POX 96%
[2020-09-30 00:19] LABS: BASOPHILS % (AUTO) 1 % (0-1); EOSINOPHILS % (AUTO) 2 % (1-7); LYMPHOCYTES % (AUTO) 24 % (22-44); MEAN CORPUSCULAR HEMOGLOBIN 26.3 pg (27.5-34.5); MEAN CORPUSCULAR HGB CONC 32.2 g/dL (33.2-36.2); MEAN PLATELET VOLUME 7.6 fL (7.4-10.4); MONOCYTES % (AUTO) 9 % (2-9); NEUTROPHILS % (AUTO) 64 % (42-75); PLATELET COUNT 344 x10^3/uL (130-400); RED BLOOD COUNT 4.63 x10^6/uL (4.38-5.82); RED CELL DISTRIBUTION WIDTH 15.9 % (9.4-14.8)
--- NOTE | 2020-09-30 00:21 | NUR ---
CXR AT BEDSIDE
[2020-09-30 00:22] LABS: MD NO
[2020-09-30 00:28] LABS: ALANINE AMINOTRANSFERASE 20 U/L (12-78); ALBUMIN 3.1 g/dL (3.4-5.0); ANION GAP 6 mmol/L (5-15); CALCIUM 8.6 mg/dL (8.5-10.1); CHLORIDE 107 mmol/L (98-107)
[2020-09-30 00:32] LABS: ALKALINE PHOSPHATASE 133 U/L (45-117); BILIRUBIN,TOTAL 0.3 mg/dL (0.2-1.0); TOTAL PROTEIN 7.4 g/dL (6.4-8.2); TROPONIN I < 0.015 ng/mL (0.000-0.045)
--- NOTE | 2020-09-30 00:53 | NUR ---
NO CHANGE IN EXAM, VSS ON COMMERCIAL LENDING VICE PRESIDENT ALL TESTING RESULTED-PLACED UP FOR RECHECK FOR ERP
[2020-09-30 01:32] VITALS: BP 146/71
== END 2020-09-30 01:35 | disposition home or self-care (01) ==
LOC: ED 22:50
DX: G89.29 Other chronic pain (principal); M79.661 Pain in right lower leg; M79.662 Pain in left lower leg; I49.3 Ventricular premature depolarization; I11.0 Hypertensive heart disease with heart failure; I50.9 Heart failure, unspecified; E11.9 Type 2 diabetes mellitus without complications; I25.10 Atherosclerotic heart disease of native coronary artery without angina pectoris; J45.909 Unspecified asthma, uncomplicated; E78.5 Hyperlipidemia, unspecified; G43.909 Migraine, unspecified, not intractable, without status migrainosus; M19.90 Unspecified osteoarthritis, unspecified site; Z86.73 Personal history of transient ischemic attack (TIA), and cerebral infarction without residual deficits; Z86.711 Personal history of pulmonary embolism; Z87.891 Personal history of nicotine dependence
CPT/HCPCS: 36415; 71045; 80053; 83880; 84484; 85025; 93005; 99285

== ENCOUNTER 2020-10-19 00:40 | Emergency (ER) | payer MEDICAID ==
[~2020-10-19] VITALS: Ht 167.6 cm; Wt 132.0 kg
--- NOTE | 2020-10-19 03:01 | NUR ---
PT PRESENTS WITH ABD PAIN AT THE [place], PT STATES "DEEPA ALWAYS HAD AN INNY AND ITS NOW BECOMING AN OUTY." PT IN GOWN, AND HOOKED TO ALL THE MONITORS, RESTING ON LEXI
[2020-10-19 03:53] LABS: ALANINE AMINOTRANSFERASE 22 U/L (12-78); ANION GAP 7 mmol/L (5-15); CALCIUM 8.6 mg/dL (8.5-10.1); CHLORIDE 111 mmol/L (98-107); CREATININE 1.09 mg/dL (0.7-1.3)
[2020-10-19 03:55] LABS: ALKALINE PHOSPHATASE 138 U/L (45-117); BILIRUBIN,TOTAL 0.3 mg/dL (0.2-1.0); TOTAL PROTEIN 7.6 g/dL (6.4-8.2)
--- NOTE | 2020-10-19 03:59 | NUR ---
20 G IV STARTED TO RIGHT FA, PT REQUESTING PAIN MEDICATION AT THIS TIME, PT RESTING ON RNEY
[2020-10-19] MEDS ORDERED: MORPHINE SULFATE 4 MG/ML, 1ML ONE ×2 (04:14→05:30)
[2020-10-19] MEDS ORDERED: ONDANSETRON 2MG/ML, 2ML ONE (04:14)
[2020-10-19] MEDS: MORPHINE SULFATE 4 MG/ML, 1ML IVPush PRN ×2 (04:16→05:31)
--- NOTE | 2020-10-19 04:28 | NUR ---
PT MEDICATED, PT WENT TO CT
[2020-10-19] MEDS ORDERED: ONDANSETRON 2MG/ML, 2ML IVPush ONE (04:30)
--- NOTE | 2020-10-19 04:40 | NUR ---
PT BACK FROM CT, RESTING ON LEXI
[2020-10-19] MEDS ORDERED: OMNIPAQUE 350 MG/ML, 150 ML BOTTLE ONE (04:44)
--- NOTE | 2020-10-19 05:02 | NUR ---
PT STATES THAT THE CONTRAST MADE THE PAIN MEDICATION WEAR OFF, PT RESTING COMFORTABLY ON GURNEY
[2020-10-19 05:15] VITALS: BP 153/80
[2020-10-19 05:21] LABS: BASOPHILS % (AUTO) 1 % (0-1); EOSINOPHILS % (AUTO) 3 % (1-7); LYMPHOCYTES % (AUTO) 20 % (22-44); MEAN CORPUSCULAR HEMOGLOBIN 26.2 pg (27.5-34.5); MEAN CORPUSCULAR HGB CONC 33.1 g/dL (33.2-36.2); MEAN PLATELET VOLUME 7.4 fL (7.4-10.4); MONOCYTES % (AUTO) 9 % (2-9); NEUTROPHILS % (AUTO) 66 % (42-75); PLATELET COUNT 336 x10^3/uL (130-400); RED BLOOD COUNT 4.71 x10^6/uL (4.38-5.82); RED CELL DISTRIBUTION WIDTH 16.1 % (9.4-14.8)
[2020-10-19 05:31] LABS: MD NO
--- NOTE | 2020-10-19 06:25 | NUR ---
Patient given discharge instructions and they have confirmed that they understand the instructions. Patient ambulatory with steady gait. IV removed, no s/s of distress
== END 2020-10-19 06:27 | disposition home or self-care (01) ==
LOC: ED 01:10
DX: K42.9 Umbilical hernia without obstruction or gangrene (principal); I10 Essential (primary) hypertension; E11.9 Type 2 diabetes mellitus without complications; I25.10 Atherosclerotic heart disease of native coronary artery without angina pectoris; E78.5 Hyperlipidemia, unspecified; G43.909 Migraine, unspecified, not intractable, without status migrainosus; I25.2 Old myocardial infarction; G89.29 Other chronic pain; M19.90 Unspecified osteoarthritis, unspecified site; Z90.89 Acquired absence of other organs; Z98.61 Coronary angioplasty status; Z87.891 Personal history of nicotine dependence; Z88.8 Allergy status to other drugs, medicaments and biological substances; Z86.73 Personal history of transient ischemic attack (TIA), and cerebral infarction without residual deficits
CPT/HCPCS: 36415; 74177; 80053; 83690; 85025; 96374; 96375; 96376; 99285; J2270; J2405; Q9967

== ENCOUNTER 2020-10-25 19:49 | Emergency (ER) | payer MEDICAID ==
[~2020-10-25] VITALS: Ht 172.7 cm; Wt 133.0 kg
[2020-10-25 20:38] LABS: BASOPHILS % (AUTO) 1 % (0-1); EOSINOPHILS % (AUTO) 2 % (1-7); LYMPHOCYTES % (AUTO) 19 % (22-44); MEAN CORPUSCULAR HEMOGLOBIN 26.2 pg (27.5-34.5); MEAN CORPUSCULAR HGB CONC 33.3 g/dL (33.2-36.2); MEAN PLATELET VOLUME 7.1 fL (7.4-10.4); MONOCYTES % (AUTO) 6 % (2-9); NEUTROPHILS % (AUTO) 71 % (42-75); PLATELET COUNT 330 x10^3/uL (130-400); RED CELL DISTRIBUTION WIDTH 16.6 % (9.4-14.8)
[2020-10-25 20:50] LABS: ALBUMIN 3.3 g/dL (3.4-5.0); ANION GAP 8 mmol/L (5-15); CALCIUM 8.7 mg/dL (8.5-10.1); CHLORIDE 108 mmol/L (98-107)
[2020-10-25 20:54] LABS: ALANINE AMINOTRANSFERASE 23 U/L (12-78); ALKALINE PHOSPHATASE 138 U/L (45-117); BILIRUBIN,TOTAL 0.4 mg/dL (0.2-1.0); CREATININE 0.99 mg/dL (0.7-1.3); TOTAL PROTEIN 7.9 g/dL (6.4-8.2)
[2020-10-26] MEDS ORDERED: HYDROcodone/APAP 5/325 TABLET ONE
[2020-10-26] MEDS ORDERED: HYDROcodone/APAP 5/325 TABLET PO ONE
[2020-10-26 00:50] VITALS: BP 157/82
--- NOTE | 2020-10-26 00:52 | NUR ---
PT REC'VD DISCHARGE INSTRUCTIONS AND EDUCATION. PT HAD NO FURTHER QUESTIONS.
--- NOTE | 2020-10-26 01:06 | NUR ---
PT AMBULATED TO AL AREA, STEADY GAIT.
== END 2020-10-26 01:24 | disposition home or self-care (01) ==
LOC: ED 22:42
DX: S39.011A Strain of muscle, fascia and tendon of abdomen, initial encounter (principal); R00.0 Tachycardia, unspecified; I25.2 Old myocardial infarction; I10 Essential (primary) hypertension; E78.5 Hyperlipidemia, unspecified; I25.10 Atherosclerotic heart disease of native coronary artery without angina pectoris; Z86.73 Personal history of transient ischemic attack (TIA), and cerebral infarction without residual deficits; Z90.89 Acquired absence of other organs; Z98.61 Coronary angioplasty status; Z87.891 Personal history of nicotine dependence
CPT/HCPCS: 36415; 71045; 80053; 83690; 85025; 93005; 99285

== ENCOUNTER 2020-11-25 19:31 | Emergency (ER) | payer MEDICAID ==
[~2020-11-25] VITALS: Ht 172.7 cm; Wt 130.3 kg
--- NOTE | 2020-11-25 19:42 | NUR ---
Pt BIB EMS for GLF in bathroom around 6pm with +LOC, pt does not know what happened but states that there is pain in his R knee and midline back of neck rated a 9/10. Given 100 of fentanyl in route by EMS, PIV placed RACING SECRETARY in R hand. Pt has has recent surgery on R knee and hip and states that he stopped taking ASA 2 days ago. Placed in gown, connected to BP and O2 monitors, VSS, WCTM
[2020-11-25] MEDS ORDERED: MORPHINE SULFATE 4 MG/ML, 1ML ONE ×2 (20:15→22:24)
[2020-11-25] MEDS ORDERED: ONDANSETRON 2MG/ML, 2ML ONE (20:15)
--- NOTE | 2020-11-25 20:17 | NUR ---
pt to radiology
[2020-11-25] MEDS: MORPHINE SULFATE 4 MG/ML, 1ML IVPush PRN ×2 (20:29→22:26)
[2020-11-25] MEDS ORDERED: ONDANSETRON 2MG/ML, 2ML IVPush ONE (20:30)
[2020-11-25 20:46] LABS: BASOPHILS % (AUTO) 1 % (0-1); EOSINOPHILS % (AUTO) 2 % (1-7); LYMPHOCYTES % (AUTO) 22 % (22-44); MEAN CORPUSCULAR HEMOGLOBIN 26.6 pg (27.5-34.5); MEAN CORPUSCULAR HGB CONC 33.2 g/dL (33.2-36.2); MEAN PLATELET VOLUME 7.8 fL (7.4-10.4); MONOCYTES % (AUTO) 8 % (2-9); NEUTROPHILS % (AUTO) 66 % (42-75); PLATELET COUNT 274 x10^3/uL (130-400); RED BLOOD COUNT 4.83 x10^6/uL (4.38-5.82); RED CELL DISTRIBUTION WIDTH 18.1 % (9.4-14.8)
[2020-11-25 20:59] LABS: ALBUMIN 3.1 g/dL (3.4-5.0); ANION GAP 4 mmol/L (5-15); CALCIUM 9.1 mg/dL (8.5-10.1); CHLORIDE 111 mmol/L (98-107); CREATININE 0.81 mg/dL (0.7-1.3)
[2020-11-25 21:02] LABS: TROPONIN I < 0.015 ng/mL (0.000-0.045)
--- NOTE | 2020-11-25 22:49 | NUR ---
THIS FLOAT RN AT BEDSIDE TO DC PT FOR PRIMARY RN FLOR. PT VERBALIZED UNDERSTANDING TO DC INSTRUCTIONS. AMBULATORY TO CHECKOUT USING CANE C STEAD GAIT.
[2020-11-25 22:52] VITALS: BP 143/77
== END 2020-11-25 22:54 | disposition home or self-care (01) ==
LOC: ED 21:00
DX: S83.421A Sprain of lateral collateral ligament of right knee, initial encounter (principal); R55 Syncope and collapse; I10 Essential (primary) hypertension; E11.9 Type 2 diabetes mellitus without complications; I25.2 Old myocardial infarction; I25.10 Atherosclerotic heart disease of native coronary artery without angina pectoris; J45.909 Unspecified asthma, uncomplicated; Z86.73 Personal history of transient ischemic attack (TIA), and cerebral infarction without residual deficits; Z86.711 Personal history of pulmonary embolism; Z87.891 Personal history of nicotine dependence; X58.XXXA Exposure to other specified factors, initial encounter; Y93.89 Activity, other specified; Y92.89 Other specified places as the place of occurrence of the external cause; Y99.8 Other external cause status
CPT/HCPCS: 36415; 70450; 71045; 72125; 73564; 80048; 82040; 83880; 84484; 85025; 93005; 96374; 96375; 96376; 99285; J2270; J2405

== ENCOUNTER 2020-12-03 16:12 | Emergency (ER) | payer MEDICAID ==
[~2020-12-03] VITALS: Ht 172.7 cm; Wt 130.0 kg
--- NOTE | 2020-12-03 16:38 | NUR ---
UMBILICAL HERNIA SURG THURSDAY, D/C HOME, WENT TO [facility] TODAY. REDNESS/SWELLING/VERY TENDER TO TOUCH LOWER ABD. STARTED HAVING PAIN LAST NIGHT, WAS NOT ABLE TO SPEAK W SURGEON. NO N/V/D. HOT FLASHES/CHILLS. MD AT BEDSIDE FOR EVAL.
[2020-12-03] MEDS ORDERED: ONDANSETRON 2MG/ML, 2ML IVPush ONE (17:00)
[2020-12-03] MEDS ORDERED: MORPHINE SULFATE 4 MG/ML, 1ML IVPush PRN (17:00)
[2020-12-03] MEDS ORDERED: SODIUM CHLORIDE 0.9% 1,000ML IVBOLUS ONE (17:00)
[2020-12-03] MEDS ORDERED: ONDANSETRON 2MG/ML, 2ML ONE (17:11)
[2020-12-03] MEDS ORDERED: MORPHINE SULFATE 4 MG/ML, 1ML ONE (17:11)
[2020-12-03 17:20] LABS: BASOPHILS % (AUTO) 1 % (0-1); EOSINOPHILS % (AUTO) 2 % (1-7); LYMPHOCYTES % (AUTO) 18 % (22-44); MEAN CORPUSCULAR HEMOGLOBIN 27.2 pg (27.5-34.5); MEAN CORPUSCULAR HGB CONC 33.2 g/dL (33.2-36.2); MEAN PLATELET VOLUME 7.5 fL (7.4-10.4); MONOCYTES % (AUTO) 10 % (2-9); NEUTROPHILS % (AUTO) 68 % (42-75); PLATELET COUNT 288 x10^3/uL (130-400); RED BLOOD COUNT 4.52 x10^6/uL (4.38-5.82); RED CELL DISTRIBUTION WIDTH 18.4 % (9.4-14.8)
[2020-12-03 17:24] LABS: ALANINE AMINOTRANSFERASE 23 U/L (12-78); CALCIUM 8.8 mg/dL (8.5-10.1); CHLORIDE 107 mmol/L (98-107)
[2020-12-03 17:26] LABS: ALKALINE PHOSPHATASE 105 U/L (45-117); BILIRUBIN,TOTAL 0.4 mg/dL (0.2-1.0); TOTAL PROTEIN 7.4 g/dL (6.4-8.2)
[2020-12-03 17:31] VITALS: BP 151/79
[2020-12-03 17:32] LABS: ANION GAP 4 mmol/L (5-15)
[2020-12-03] MEDS ORDERED: OMNIPAQUE 350 MG/ML, 100ML BOTTLE ONE (18:04)
== END 2020-12-03 19:14 | disposition home or self-care (01) ==
LOC: ED 16:30
DX: R10.33 Periumbilical pain (principal); I10 Essential (primary) hypertension; I25.10 Atherosclerotic heart disease of native coronary artery without angina pectoris; E11.9 Type 2 diabetes mellitus without complications; I25.2 Old myocardial infarction; J45.909 Unspecified asthma, uncomplicated; M19.90 Unspecified osteoarthritis, unspecified site; Z87.891 Personal history of nicotine dependence; Z86.711 Personal history of pulmonary embolism; Z86.73 Personal history of transient ischemic attack (TIA), and cerebral infarction without residual deficits
CPT/HCPCS: 36415; 74177; 80053; 83605; 85025; 96374; 96375; 99285; J2270; J2405; J7030; Q9967; 96361

== ENCOUNTER 2020-12-16 17:45 | Emergency (ER) | payer MEDICAID ==
[~2020-12-16] VITALS: Ht 172.7 cm; Wt 133.0 kg
[2020-12-16] MEDS ORDERED: ONDANSETRON 2MG/ML, 2ML IVPush ONE (19:00)
[2020-12-16] MEDS ORDERED: SODIUM CHLORIDE FLUSH 10ML SYR IVF ONE (19:00)
[2020-12-16] MEDS ORDERED: ONDANSETRON 2MG/ML, 2ML ONE (19:24)
[2020-12-16] MEDS ORDERED: HYDROmorphone 2 MG/ML, 1ML ONE ×2 (19:24→21:22)
[2020-12-16] MEDS: HYDROmorphone 1 MG/ML, 1ML INJ IV PRN ×2 (19:26→21:30)
--- NOTE | 2020-12-16 19:30 | NUR ---
Patient to US.
[2020-12-16 20:42] LABS: BASOPHILS % (AUTO) 1 % (0-1); EOSINOPHILS % (AUTO) 4 % (1-7); LYMPHOCYTES % (AUTO) 27 % (22-44); MEAN CORPUSCULAR HGB CONC 33.1 g/dL (33.2-36.2); MEAN PLATELET VOLUME 7.2 fL (7.4-10.4); MONOCYTES % (AUTO) 10 % (2-9); NEUTROPHILS % (AUTO) 59 % (42-75); PLATELET COUNT 341 x10^3/uL (130-400); RED BLOOD COUNT 4.33 x10^6/uL (4.38-5.82)
[2020-12-16 20:43] LABS: ANION GAP 4 mmol/L (5-15); CALCIUM 8.6 mg/dL (8.5-10.1); CHLORIDE 106 mmol/L (98-107)
[2020-12-16 20:47] LABS: TROPONIN I < 0.015 ng/mL (0.000-0.045)
[2020-12-16] MEDS ORDERED: OMNIPAQUE 350 MG/ML, 100ML BOTTLE ONE (21:19)
--- NOTE | 2020-12-16 21:21 | NUR ---
NEW IV STARTED IN CT- 20G RT FA
[2020-12-16 22:13] VITALS: BP 123/70
== END 2020-12-16 22:46 | disposition home or self-care (01) ==
LOC: ED 22:05
DX: G89.29 Other chronic pain (principal); M79.651 Pain in right thigh; M79.661 Pain in right lower leg; I10 Essential (primary) hypertension; E11.9 Type 2 diabetes mellitus without complications; E78.5 Hyperlipidemia, unspecified; I25.10 Atherosclerotic heart disease of native coronary artery without angina pectoris; I25.2 Old myocardial infarction; Z86.718 Personal history of other venous thrombosis and embolism; Z87.891 Personal history of nicotine dependence
CPT/HCPCS: 36415; 71045; 71275; 80048; 82040; 83880; 84484; 85025; 93005; 93971; 96374; 96375; 96376; 99285; J1170; J2405; Q9967

== ENCOUNTER 2020-12-27 10:35 | Inpatient (IN) | payer MEDICAID ==
[~2020-12-27] VITALS: Ht 172.7 cm; Wt 129.0 kg
--- NOTE | 2020-12-27 11:12 | NUR ---
EKG IN TRIAGE
--- NOTE | 2020-12-27 12:19 | NUR ---
IN US, SPOKE WITH DAQUAN, WILL RETURN PT TO ROOM 16 UPON RETURN TO ED.
--- NOTE | 2020-12-27 12:34 | NUR ---
PATIENT IN ULTRASOUND, NOT IN ROOM YET.
[2020-12-27 12:55] LABS: BASOPHILS % (AUTO) 1 % (0-1); EOSINOPHILS % (AUTO) 2 % (1-7); LYMPHOCYTES % (AUTO) 19 % (22-44); MEAN CORPUSCULAR HEMOGLOBIN 26.9 pg (27.5-34.5); MEAN CORPUSCULAR HGB CONC 32.8 g/dL (33.2-36.2); MEAN PLATELET VOLUME 7.4 fL (7.4-10.4); MONOCYTES % (AUTO) 9 % (2-9); NEUTROPHILS % (AUTO) 70 % (42-75); PLATELET COUNT 309 x10^3/uL (130-400); RED BLOOD COUNT 4.68 x10^6/uL (4.38-5.82); RED CELL DISTRIBUTION WIDTH 17.9 % (9.4-14.8)
--- NOTE | 2020-12-27 12:57 | NUR ---
PATIENT HERE WITH CHIEF C/O BLE SWELLING X2.5 WEEKS. PATIENT REPORTS SWELLING HAS GOTTEN WORSE. 2+ PITTING EDEMA NOTED TO BLE, REDNESS ALSO NOTED. PATIENT HAS OPEN SORES ON BOTH FEET. NADN, CONNECTED TO MONITOR, VSS, CALL LIGHT WITHIN REACH.
[2020-12-27 13:05] LABS: ALBUMIN 3.4 g/dL (3.4-5.0); ANION GAP 3 mmol/L (5-15); CALCIUM 8.9 mg/dL (8.5-10.1); CHLORIDE 110 mmol/L (98-107)
[2020-12-27 13:10] LABS: ALANINE AMINOTRANSFERASE 34 U/L (12-78); ALKALINE PHOSPHATASE 124 U/L (45-117); BILIRUBIN,TOTAL 0.8 mg/dL (0.2-1.0); CREATININE 0.83 mg/dL (0.7-1.3); TOTAL PROTEIN 7.8 g/dL (6.4-8.2)
--- NOTE | 2020-12-27 13:16 | NUR ---
ERMD AT BEDSIDE FOR EVALUATION.
[2020-12-27] MEDS ORDERED: HYDROmorphone 2 MG/ML, 1ML ONE (13:29)
[2020-12-27] MEDS ORDERED: FUROSEMIDE 40 MG/4 ML ONE (13:30)
[2020-12-27] MEDS ORDERED: HYDROmorphone 1 MG/ML, 1ML INJ IV ONE (13:30)
[2020-12-27] MEDS ORDERED: FUROSEMIDE 100 MG/10 ML IV ONE (13:30)
--- NOTE | 2020-12-27 14:02 | NUR ---
22 GAUGE IV STARTED LEFT FA VIA ULTRASOUND, PATIENT MEDICATED PER eMAR, WARM BLANKET PROVIDED. PATIENT CONNECTED TO MONITOR, VSS, CALL LIGHT WITHIN REACH.
[2020-12-27] MEDS ORDERED: AZITHROMYCIN 500 MG in SODIUM CHLORIDE 0.9% 250 ML IV ONE (14:30)
[2020-12-27] MEDS ORDERED: CEFTRIAXONE 1,000 MG in DEXTROSE 5% 50 ML IVPB ONE (14:30)
--- NOTE | 2020-12-27 14:40 | NUR ---
FOOD TRAY ORDERED.
--- NOTE | 2020-12-27 14:50 | NUR ---
LATE ENTRY DUE TO PATIENT CARE: BILLET BED OPERATOR AT BEDSIDE TO DRAW LABS, UNABLE TO GET BLOOD CULTURES, SENDING ANOTHER BILLET BED OPERATOR. UNABLE TO HANG BLOOD CULTURES AT THIS TIME.
--- NOTE | 2020-12-27 15:45 | NUR ---
ATTEMPTED TO CALL REPORT.
--- NOTE | 2020-12-27 15:58 | NUR ---
REPORT TO MIKI FIELDS FOR TRANSFER OF PATIENT CARE.
[2020-12-27] MEDS ORDERED: morphine SULFATE 10 MG/ML, 1ML IVPush PRN (17:00)
[2020-12-27] MEDS ORDERED: ACETAMINOPHEN 325 MG TABLET PO PRN (17:00)
[2020-12-27] MEDS ORDERED: DIPHENHYDRAMINE 25 MG CAPSULE PO PRN (17:00)
[2020-12-27] MEDS ORDERED: ONDANSETRON ODT 4 MG PO PRN (17:00)
[2020-12-27] MEDS ORDERED: DOCUSATE 100 MG CAPSULE PO PRN (17:00)
[2020-12-27] MEDS ORDERED: QUETIAPINE 25MG TABLET PO PRN (17:00)
[2020-12-27] MEDS ORDERED: ENALAPRILAT 1.25 MG/ML, 1ML IVPush PRN (17:00)
--- NOTE | 2020-12-27 17:06 | NUR ---
PATIENT TRANSFERRED IN STABLE CONDITION VIA GURNEY TO CARDIAC TELEMETRY WITH CANAL EQUIPMENT MAINTENANCE SUPERVISOR. ALL PATIENT BELONGINGS TAKEN TO FLOOR WITH PATIENT.
[2020-12-27 17:24] VITALS: BP 139/67
[2020-12-27 17:26] VITALS: BP 139/67
[2020-12-27 17:52] LABS: TROPONIN I < 0.015 ng/mL (0.000-0.045)
[2020-12-27] MEDS: POTASSIUM CHLORIDE 20 MEQ TAB.ER.PRT PO SCH (18:43)
[2020-12-27] MEDS: FUROSEMIDE 40 MG/4 ML IV SCH (18:43)
[2020-12-27] MEDS: HYDROcodone/APAP 10/325 MG TABLET PO PRN (18:43)
[2020-12-27 20:01] VITALS: BP 134/75
[2020-12-27] MEDS: metFORMIN 500 MG TABLET PO SCH (20:22)
[2020-12-27] MEDS: LISINOPRIL 20 MG TABLET PO SCH (20:22)
[2020-12-27 23:25] LABS: TROPONIN I < 0.015 ng/mL (0.000-0.045)
[2020-12-28 02:59] VITALS: BP 117/68
[2020-12-28 06:19] LABS: BASOPHILS % (AUTO) 1 % (0-1); EOSINOPHILS % (AUTO) 3 % (1-7); LYMPHOCYTES % (AUTO) 17 % (22-44); MEAN CORPUSCULAR HEMOGLOBIN 26.5 pg (27.5-34.5); MEAN CORPUSCULAR HGB CONC 32.5 g/dL (33.2-36.2); MEAN PLATELET VOLUME 7.5 fL (7.4-10.4); MONOCYTES % (AUTO) 9 % (2-9); NEUTROPHILS % (AUTO) 70 % (42-75); PLATELET COUNT 280 x10^3/uL (130-400); RED BLOOD COUNT 4.45 x10^6/uL (4.38-5.82); RED CELL DISTRIBUTION WIDTH 17.7 % (9.4-14.8)
[2020-12-28] MEDS: FUROSEMIDE 40 MG/4 ML IV SCH ×2 (06:30→16:13)
[2020-12-28 06:55] VITALS: BP 117/67
[2020-12-28 07:05] LABS: ANION GAP 6 mmol/L (5-15); CALCIUM 9.1 mg/dL (8.5-10.1); CHLORIDE 105 mmol/L (98-107); CREATININE 0.77 mg/dL (0.7-1.3)
[2020-12-28] MEDS: ATORVASTATIN 20 MG TABLET PO SCH (08:23)
[2020-12-28] MEDS: BUPROPION SR 100 MG TABLET PO SCH (08:23)
[2020-12-28] MEDS: metFORMIN 500 MG TABLET PO SCH ×2 (08:23→17:40)
[2020-12-28] MEDS: ASPIRIN 81 MG TABLET EC PO SCH (08:24)
[2020-12-28] MEDS: LISINOPRIL 20 MG TABLET PO SCH ×2 (08:24→21:09)
[2020-12-28] MEDS: DIVALPROEX 250 MG TABLET.DR PO SCH (08:25)
[2020-12-28] MEDS: POTASSIUM CHLORIDE 20 MEQ TAB.ER.PRT PO SCH (08:25)
[2020-12-28] MEDS ORDERED: metFORMIN 500 MG TABLET PO SCH (09:00)
[2020-12-28] MEDS: HYDROcodone/APAP 10/325 MG TABLET PO PRN ×2 (09:11→16:46)
[2020-12-28] MEDS: ONDANSETRON 2MG/ML, 2ML IVPush PRN ×2 (10:46→18:41)
[2020-12-28] MEDS: ENOXAPARIN 40 MG/0.4 ML SQ SCH ×2 (11:58→21:09)
[2020-12-28 16:21] VITALS: BP 119/73
[2020-12-28 18:46] VITALS: BP 127/76
[2020-12-29 01:17] VITALS: BP 122/80
[2020-12-29 05:32] LABS: ANION GAP 5 mmol/L (5-15); CALCIUM 9.3 mg/dL (8.5-10.1); CHLORIDE 104 mmol/L (98-107)
[2020-12-29 05:33] LABS: CREATININE 0.76 mg/dL (0.7-1.3)
[2020-12-29] MEDS: ASPIRIN 81 MG TABLET EC PO SCH (08:18)
[2020-12-29] MEDS: ENOXAPARIN 40 MG/0.4 ML SQ SCH (08:18)
[2020-12-29] MEDS: FUROSEMIDE 40 MG/4 ML IV SCH ×2 (08:18→16:22)
[2020-12-29] MEDS: POTASSIUM CHLORIDE 20 MEQ TAB.ER.PRT PO SCH (08:19)
[2020-12-29] MEDS: ATORVASTATIN 20 MG TABLET PO SCH (08:19)
[2020-12-29] MEDS: LISINOPRIL 20 MG TABLET PO SCH ×2 (08:19→21:24)
[2020-12-29] MEDS: DIVALPROEX 250 MG TABLET.DR PO SCH (08:19)
[2020-12-29] MEDS: BUPROPION SR 100 MG TABLET PO SCH (08:19)
[2020-12-29] MEDS: metFORMIN 500 MG TABLET PO SCH ×2 (08:20→16:22)
[2020-12-29 08:30] VITALS: BP 130/80
[2020-12-29] MEDS ORDERED: PROCHLORPERAZINE 5 MG/ML, 2ML IVPush PRN (09:30)
[2020-12-29] MEDS: HYDROcodone/APAP 10/325 MG TABLET PO PRN ×2 (09:31→21:25)
[2020-12-29] MEDS ORDERED: ENOXAPARIN 40 MG/0.4 ML SQ SCH ×2 (11:30→15:50)
[2020-12-29 13:49] VITALS: BP 110/76
[2020-12-29 19:34] VITALS: BP 128/78
[2020-12-30 02:00] VITALS: BP 101/68
[2020-12-30 06:24] VITALS: BP 147/89
[2020-12-30 07:14] LABS: ANION GAP 6 mmol/L (5-15); CALCIUM 9.4 mg/dL (8.5-10.1); CHLORIDE 102 mmol/L (98-107); CREATININE 0.76 mg/dL (0.7-1.3)
[2020-12-30] MEDS ORDERED: FURO40TA6 PO (11:14)
[2020-12-30] MEDS ORDERED: POTA20TA14 PO (11:15)
[2020-12-30] MEDS: FUROSEMIDE 40 MG/4 ML IV SCH (11:23)
[2020-12-30] MEDS: BUPROPION SR 100 MG TABLET PO SCH (11:24)
[2020-12-30] MEDS: POTASSIUM CHLORIDE 20 MEQ TAB.ER.PRT PO SCH (11:24)
[2020-12-30] MEDS: ATORVASTATIN 20 MG TABLET PO SCH (11:24)
[2020-12-30] MEDS: ASPIRIN 81 MG TABLET EC PO SCH (11:24)
[2020-12-30] MEDS: metFORMIN 500 MG TABLET PO SCH (11:24)
[2020-12-30] MEDS: DIVALPROEX 250 MG TABLET.DR PO SCH (11:24)
[2020-12-30] MEDS: LISINOPRIL 20 MG TABLET PO SCH (11:25)
== END 2020-12-30 13:49 | disposition home or self-care (01) | DRG 292 ==
LOC: ED 13:55 → 5SO 14:26
PROVIDERS: ADMIT Family Medicine; ATTEND Hospitalist
DX: I11.0 Hypertensive heart disease with heart failure (principal); E87.1 Hypo-osmolality and hyponatremia; I50.23 Acute on chronic systolic (congestive) heart failure; E11.9 Type 2 diabetes mellitus without complications; E66.9 Obesity, unspecified; D64.9 Anemia, unspecified; F17.200 Nicotine dependence, unspecified, uncomplicated; F32.9 Major depressive disorder, single episode, unspecified; F15.10 Other stimulant abuse, uncomplicated; M16.11 Unilateral primary osteoarthritis, right hip; I25.10 Atherosclerotic heart disease of native coronary artery without angina pectoris; E78.5 Hyperlipidemia, unspecified; M54.9 Dorsalgia, unspecified; M54.5 Low back pain; G89.29 Other chronic pain; Z79.899 Other long term (current) drug therapy; Z95.5 Presence of coronary angioplasty implant and graft; I25.2 Old myocardial infarction; Z86.711 Personal history of pulmonary embolism; Z90.49 Acquired absence of other specified parts of digestive tract; Z88.8 Allergy status to other drugs, medicaments and biological substances
CPT/HCPCS: 36415; 99285; C8929; 71045; 80048; 80053; 82962; 83735; 83880; 84443; 84484; 85025; 93005; 93970; G0378; J1170; J1650; J1940; J2405; Q9957; J0780

== ENCOUNTER 2021-01-18 18:26 | Emergency (ER) | payer MEDICAID ==
[~2021-01-18] VITALS: Ht 172.7 cm; Wt 127.1 kg
[~2021-01-18 18:26] MED LIST changes: -CLIN150C15 PO; +CLIN150C17 PO; +FURO40TA6 PO; -QUET25TA2 PO; +QUET25TA3 PO
[2021-01-18 19:32] LABS: ALANINE AMINOTRANSFERASE 29 U/L (12-78); ALBUMIN 3.1 g/dL (3.4-5.0); ANION GAP 7 mmol/L (5-15); CALCIUM 8.9 mg/dL (8.5-10.1); CHLORIDE 111 mmol/L (98-107); CREATININE 0.79 mg/dL (0.7-1.3)
[2021-01-18 19:34] LABS: BASOPHILS % (AUTO) 1 % (0-1); EOSINOPHILS % (AUTO) 2 % (1-7); LYMPHOCYTES % (AUTO) 23 % (22-44); MEAN CORPUSCULAR HEMOGLOBIN 26.9 pg (27.5-34.5); MEAN CORPUSCULAR HGB CONC 32.9 g/dL (33.2-36.2); MEAN PLATELET VOLUME 7.3 fL (7.4-10.4); MONOCYTES % (AUTO) 8 % (2-9); NEUTROPHILS % (AUTO) 66 % (42-75); PLATELET COUNT 314 x10^3/uL (130-400); RED CELL DISTRIBUTION WIDTH 16.7 % (9.4-14.8)
[2021-01-18 19:35] LABS: ALKALINE PHOSPHATASE 130 U/L (45-117); BILIRUBIN,TOTAL 0.3 mg/dL (0.2-1.0); TOTAL PROTEIN 7.6 g/dL (6.4-8.2)
--- NOTE | 2021-01-18 20:29 | NUR ---
direct mail marketer: patient to room from lobby.
--- NOTE | 2021-01-18 20:51 | NUR ---
PT C/O OF OF NAUSEA AND PERIUMBILICAL PAIN THAT HAS BEGAN TO GET A LOT WORSE TODAY. PT HAD UMBILICAL HIATAL HERNIA REPAIRED ONE MONTH AGO. ATTACHED TO MONITORS. VSS. SYLVAIN AT MOMENT. NADN BED IN LOW, RAILS ENGAGED, CALL LIGHT ON LAP.
[2021-01-18 21:17] LABS: MICROSCOPIC AUTO
[2021-01-18] MEDS ORDERED: MORPHINE SULFATE 4 MG/ML, 1ML IVPush PRN (21:30)
[2021-01-18] MEDS ORDERED: ONDANSETRON 2MG/ML, 2ML IVPush ONE (21:30)
[2021-01-18] MEDS ORDERED: OXYcodone/APAP 10/325MG TABLET ONE (21:39)
[2021-01-18] MEDS ORDERED: OXYcodone/APAP 10/325MG TABLET PO ONE (22:00)
[2021-01-18 22:42] VITALS: BP 176/114
--- NOTE | 2021-01-18 22:43 | NUR ---
Patient/Caregiver given discharge instructions and they have confirmed that they understand the instructions. Patient ambulatory with steady gait WITH CANE. NAD, all questions answered appropriately, denies additional needs at this time. No personal belongings left in room after discharge.
--- NOTE | 2021-01-18 23:05 | NUR ---
PT GIVEN TAXI VOUCHER FOR SAFE DC
== END 2021-01-18 23:08 | disposition home or self-care (01) ==
LOC: ED 18:45
DX: K42.9 Umbilical hernia without obstruction or gangrene (principal); R10.33 Periumbilical pain; I10 Essential (primary) hypertension; E11.9 Type 2 diabetes mellitus without complications; I25.2 Old myocardial infarction
CPT/HCPCS: 36415; 74021; 74176; 80053; 81001; 83690; 85025; 99285